=== PATIENT | male | born 1985 | race Caucasian/White ===

== ENCOUNTER 2017-09-06 01:11 | Inpatient (IN) | payer OTHER ==
[2017-09-06 02:16] LABS: Allen Test ACCEPTAB; Arterial Base Excess -9.1 mmol/L (-3.0-3); Arterial Blood Gas Oxygen Sat 93.3 mmHG (95.0-98.0); Arterial COHb 0.2 % (0.0-3.0); Arterial Fraction of Oxyhgb 92.8 % (93.0-99.0); Arterial MetHb 0.3 % (0.0-1.5); Arterial Total Hemglobin 9.7 g/dl (12.0-18.0); Arterial pCO2 44.1 mmhg (35-45); MODE VENT - AC; Site Left Radial
[2017-09-06 03:10] LABS: ADD MAN DIFF? NO; HAAIG REFLEX REFLEX FILED
[2017-09-06 03:29] LABS: LACTIC ACID 1.1 mmol/L (0.5-2.0)
[2017-09-06 03:30] LABS: ALANINE AMINOTRANSFERASE 398 IU/L (13-69); ALBUMIN 2.2 g/dl (3.3-4.9); ALKALINE PHOSPHATASE 199 IU/L (42-121); ANION GAP 15 (8-16); ASPARTATE AMINO TRANSFERASE 322 IU/L (15-46); BILIRUBIN,INDIRECT 0.6 mg/dl (0-1.1); BILIRUBIN,TOTAL 4.2 mg/dl (0.2-1.3); BLOOD UREA NITROGEN 48 mg/dl (7-20); CALCIUM 8.1 mg/dl (8.4-10.2); CARBON DIOXIDE 19 mmol/L (21-31); CHLORIDE 116 mmol/L (97-110); CREATININE 1.88 mg/dl (0.61-1.24); GLUCOSE 113 mg/dl (70-220); MAGNESIUM 1.8 mg/dl (1.7-2.5); POTASSIUM 4.9 mmol/L (3.5-5.1); SODIUM 145 mmol/L (135-144); TOTAL PROTEIN 6.6 g/dl (6.1-8.1)
[2017-09-06 03:36] LABS: WHITE BLOOD COUNT 27.1 10^3/ul (4.8-10.8)
[2017-09-06 03:36] LABS: ABNORMAL IP MESSAGE 1; BASOPHIL # 0.1 10^3/ul (0.0-0.1); BASOPHILS % 0.2 % (0.0-2.0); EOSINOPHILS % 0.1 % (0.0-7.0); HEMATOCRIT 25.8 % (42.0-52.0); HEMOGLOBIN 8.8 g/dl (14.0-18.0); LYMPHOCYTES % 3.6 % (15.0-51.0); MEAN CORPUSCULAR HEMOGLOBIN 27.9 pg (29.0-33.0); MEAN CORPUSCULAR HGB CONC 34.1 g/dl (32.0-37.0); MEAN CORPUSCULAR VOLUME 81.9 fl (82.0-101.0); MEAN PLATELET VOLUME 10.1 fl (7.4-10.4); MONOCYTE # 1.3 10^3/ul (0.3-0.9); MONOCYTES % 4.9 % (0.0-11.0); NEUTROPHIL # 23.5 10^3/ul (1.6-7.5); NEUTROPHILS % 86.8 % (39.0-77.0); NUCLEATED RED BLOOD CELLS% 0.1 /100WBC (0.0-0.0); PLATELET COUNT 110 10^3/UL (140-415); POSITIVE DIFF @See below; RED BLOOD COUNT 3.15 10^6/ul (4.70-6.10); RED CELL DISTRIBUTION WIDTH 19.9 % (11.5-14.5)
[2017-09-06] MEDS: SOD CHLORIDE 0.9% 1,000 ML IV ×4 (03:41→22:47)
[2017-09-06] MEDS: FENTAnyl (DRIP) 1000 mcg/100mL 100 ML IV ×2 (03:49→15:52)
[2017-09-06] MEDS: MIDAZOLAM (DRIP) 50 mg/50 mL 50 ML IV ×2 (03:57→15:47)
[2017-09-06] MEDS: ACETAMINOPHEN 650MG/20.3ML CUP PO (04:01)
[2017-09-06 04:08] LABS: HEPATITIS B SURFACE ANTIGEN NEGATIVE (NEGATIVE)
[2017-09-06] MEDS: ZYVOX 600 MG TAB PO (04:12)
[2017-09-06] MEDS: LEVOFLOXACIN 500MG/D5W (PMX) 100 ML IVPB (04:12)
[2017-09-06 04:26] LABS: HEPATITIS B CORE ANTIBODY NEGATIVE (NEGATIVE)
[2017-09-06 04:34] LABS: HEPATITIS B SURFACE ANTIBODY POSITIVE (NEGATIVE)
[2017-09-06 04:34] LABS: HEPATITIS C VIRAL ANTIBODY REACTIVE (NEGATIVE)
[2017-09-06] MEDS ORDERED: LEVOFLOXACIN 250MG/D5W (PMX) 50 ML IVPB (05:30)
[2017-09-06] MEDS: PANTOPRAZOLE 40 MG INJ IV (06:18)
[2017-09-06] MEDS: CLINDAMYCIN 600 MG/D5W (PMX) 50 ML IVPB ×2 (07:38→11:29)
[2017-09-06 08:28] LABS: AADO2 Arterial 120.3 mmHg (7.0-24.0); Allen Test ACCEPTAB; Arterial Base Excess -6.6 mmol/L (-3.0-3); Arterial Blood Gas Oxygen Sat 98.1 mmHG (95.0-98.0); Arterial COHb 0.5 % (0.0-3.0); Arterial Fraction of Oxyhgb 97.2 % (93.0-99.0); Arterial HCO3 18.2 mmol/L (22.0-26.0); Arterial MetHb 0.4 % (0.0-1.5); Arterial Total Hemglobin 8.2 g/dl (12.0-18.0); Arterial pCO2 33.1 mmhg (35-45); MODE VENT - AC; Site Right Radial
[2017-09-06] MEDS: LINEZOLID 600 MG/D5W (PMX) 300 ML IVPB ×2 (08:29→20:58)
[2017-09-06 10:57] LABS: HEPATITIS C VIRAL ANTIBODY REACTIVE (NEGATIVE)
[2017-09-06] MEDS: METHADONE (1 MG/ML 5 ML PO UD SYG) PO (11:29)
[2017-09-07] MEDS: ACETAMINOPHEN 650MG/20.3ML CUP PO ×2 (00:45→11:50)
[2017-09-07] MEDS: MIDAZOLAM (DRIP) 50 mg/50 mL 50 ML IV ×3 (00:51→21:36)
[2017-09-07] MEDS: FENTAnyl (DRIP) 1000 mcg/100mL 100 ML IV ×3 (02:18→21:47)
[2017-09-07 05:47] LABS: ADD MAN DIFF? NO
[2017-09-07 05:57] LABS: WHITE BLOOD COUNT 21.1 10^3/ul (4.8-10.8)
[2017-09-07 05:57] LABS: ABNORMAL IP MESSAGE 1; BASOPHIL # 0.1 10^3/ul (0.0-0.1); BASOPHILS % 0.2 % (0.0-2.0); EOSINOPHILS # 0.1 10^3/ul (0.0-0.5); EOSINOPHILS % 0.6 % (0.0-7.0); HEMATOCRIT 22.3 % (42.0-52.0); HEMOGLOBIN 7.4 g/dl (14.0-18.0); LYMPHOCYTES # 1.4 10^3/ul (0.8-2.9); LYMPHOCYTES % 6.6 % (15.0-51.0); MEAN CORPUSCULAR HEMOGLOBIN 27.2 pg (29.0-33.0); MEAN CORPUSCULAR HGB CONC 33.2 g/dl (32.0-37.0); MEAN PLATELET VOLUME 10.6 fl (7.4-10.4); MONOCYTE # 1.4 10^3/ul (0.3-0.9); MONOCYTES % 6.6 % (0.0-11.0); NEUTROPHIL # 17.7 10^3/ul (1.6-7.5); NEUTROPHILS % 83.6 % (39.0-77.0); NUCLEATED RED BLOOD CELLS% 0.2 /100WBC (0.0-0.0); PLATELET COUNT 89 10^3/UL (140-415); POSITIVE DIFF @See below; RED BLOOD COUNT 2.72 10^6/ul (4.70-6.10); RED CELL DISTRIBUTION WIDTH 19.9 % (11.5-14.5)
[2017-09-07] MEDS: PANTOPRAZOLE 40 MG INJ IV (06:05)
[2017-09-07] MEDS: SOD CHLORIDE 0.9% 1,000 ML IV (06:05)
[2017-09-07 06:23] LABS: OPIATES Negative (NEGATIVE)
[2017-09-07 06:24] LABS: AMPHETAMINE/METHAMPHETAMINE Negative (NEGATIVE); BARBITURATES Negative (NEGATIVE); BENZODIAZEPINES Positive (NEGATIVE); CANNABINOIDS Negative (NEGATIVE); COCAINE Negative (NEGATIVE)
[2017-09-07 06:38] LABS: ALANINE AMINOTRANSFERASE 217 IU/L (13-69); ALBUMIN/GLOBULIN RATIO 0.52; ALKALINE PHOSPHATASE 159 IU/L (42-121); ANION GAP 14 (8-16); ASPARTATE AMINO TRANSFERASE 78 IU/L (15-46); BILIRUBIN,INDIRECT 0.5 mg/dl (0-1.1); BLOOD UREA NITROGEN 56 mg/dl (7-20); CALCIUM 7.8 mg/dl (8.4-10.2); CARBON DIOXIDE 19 mmol/L (21-31); CHLORIDE 116 mmol/L (97-110); CREATININE 2.05 mg/dl (0.61-1.24); GLUCOSE 90 mg/dl (70-220); POTASSIUM 4.1 mmol/L (3.5-5.1); SODIUM 145 mmol/L (135-144); TOTAL PROTEIN 5.8 g/dl (6.1-8.1)
[2017-09-07 08:39] LABS: PHOSPHORUS 5.5 mg/dl (2.5-4.9)
[2017-09-07] MEDS: SOD CHLORIDE 0.9% 500 ML IV (08:46)
[2017-09-07] MEDS: NORepinephrine 8MG/250 ML (PMX 250 ML IV (08:48)
[2017-09-07] MEDS: METHADONE (1 MG/ML 5 ML PO UD SYG) PO (08:49)
[2017-09-07] MEDS: LINEZOLID 600 MG/D5W (PMX) 300 ML IVPB (08:51)
[2017-09-07 08:52] LABS: AADO2 Arterial 164.8 mmHg (7.0-24.0); Allen Test ACCEPTAB; Arterial Base Excess -5.8 mmol/L (-3.0-3); Arterial Blood Gas Oxygen Sat 94.9 mmHG (95.0-98.0); Arterial COHb 0.6 % (0.0-3.0); Arterial Fraction of Oxyhgb 94.1 % (93.0-99.0); Arterial HCO3 18.9 mmol/L (22.0-26.0); Arterial MetHb 0.2 % (0.0-1.5); Arterial Total Hemglobin 7.9 g/dl (12.0-18.0); Arterial pCO2 33.8 mmhg (35-45); MODE VENT - AC; Site Right Radial
[2017-09-07] MEDS: PIPER-TAZO 2.25 GM (PMX) 50 ML IVPB ×2 (12:28→17:40)
[2017-09-07 14:20] LABS: IMMEDIATE SPIN CROSSMATCH 1 1
[2017-09-08] MEDS: PIPER-TAZO 2.25 GM (PMX) 50 ML IVPB ×4 (00:36→17:32)
[2017-09-08] MEDS: LIDOCAINE 1% (MPF) 5 ML VIAL SC (01:06)
[2017-09-08] MEDS ORDERED: LEVOFLOXACIN 250MG/D5W (PMX) 50 ML IVPB (04:00)
[2017-09-08 05:38] LABS: ADD MAN DIFF? NO
[2017-09-08 05:44] LABS: WHITE BLOOD COUNT 18.7 10^3/ul (4.8-10.8)
[2017-09-08 05:44] LABS: ABNORMAL IP MESSAGE 1; BASOPHIL # 0.1 10^3/ul (0.0-0.1); BASOPHILS % 0.4 % (0.0-2.0); EOSINOPHILS # 0.2 10^3/ul (0.0-0.5); EOSINOPHILS % 0.9 % (0.0-7.0); HEMATOCRIT 24.1 % (42.0-52.0); LYMPHOCYTES # 1.3 10^3/ul (0.8-2.9); LYMPHOCYTES % 7.1 % (15.0-51.0); MEAN CORPUSCULAR HGB CONC 33.2 g/dl (32.0-37.0); MEAN CORPUSCULAR VOLUME 84.3 fl (82.0-101.0); MEAN PLATELET VOLUME 10.8 fl (7.4-10.4); MONOCYTE # 1.3 10^3/ul (0.3-0.9); NEUTROPHIL # 15.4 10^3/ul (1.6-7.5); NEUTROPHILS % 82.5 % (39.0-77.0); NUCLEATED RED BLOOD CELLS% 0.2 /100WBC (0.0-0.0); PLATELET COUNT 60 10^3/UL (140-415); POSITIVE DIFF @See below; RED BLOOD COUNT 2.86 10^6/ul (4.70-6.10); RED CELL DISTRIBUTION WIDTH 20.1 % (11.5-14.5)
[2017-09-08] MEDS: MIDAZOLAM (DRIP) 50 mg/50 mL 50 ML IV (05:50)
[2017-09-08] MEDS: PANTOPRAZOLE 40 MG INJ IV (05:51)
[2017-09-08 06:03] LABS: ANION GAP 13 (8-16); BLOOD UREA NITROGEN 58 mg/dl (7-20); CARBON DIOXIDE 21 mmol/L (21-31); CHLORIDE 118 mmol/L (97-110); CREATININE 1.88 mg/dl (0.61-1.24); GLUCOSE 102 mg/dl (70-220); POTASSIUM 4.2 mmol/L (3.5-5.1); SODIUM 148 mmol/L (135-144)
[2017-09-08 07:55] LABS: AADO2 Arterial 142.5 mmHg (7.0-24.0); Allen Test ACCEPTAB; Arterial Base Excess -5.7 mmol/L (-3.0-3); Arterial Blood Gas Oxygen Sat 97.5 mmHG (95.0-98.0); Arterial COHb 0.3 % (0.0-3.0); Arterial Fraction of Oxyhgb 96.9 % (93.0-99.0); Arterial HCO3 18.8 mmol/L (22.0-26.0); Arterial MetHb 0.3 % (0.0-1.5); Arterial Total Hemglobin 8.9 g/dl (12.0-18.0); Arterial pCO2 33.2 mmhg (35-45); MODE VENT - AC; Site Right Radial
[2017-09-08] MEDS: FENTAnyl (DRIP) 1000 mcg/100mL 100 ML IV (08:01)
[2017-09-08] MEDS: METHADONE (1 MG/ML 5 ML PO UD SYG) PO (09:07)
[2017-09-08 16:07] LABS: HIV 1&2 ANTIBODY NEGATIVE (NEGATIVE)
[2017-09-08] MEDS: ACETAMINOPHEN 650MG/20.3ML CUP PO (20:20)
[2017-09-09] MEDS: PIPER-TAZO 2.25 GM (PMX) 50 ML IVPB ×5 (00:35→23:32)
[2017-09-09] MEDS: LACTULOSE 30ML CUP GTB ×3 (00:35→12:00)
[2017-09-09 05:38] LABS: ADD MAN DIFF? NO
[2017-09-09] MEDS: PANTOPRAZOLE 40 MG INJ IV (05:43)
[2017-09-09] MEDS: ACETAMINOPHEN 650MG/20.3ML CUP PO (05:43)
[2017-09-09 05:44] LABS: ABNORMAL IP MESSAGE 1; BASOPHIL # 0.1 10^3/ul (0.0-0.1); BASOPHILS % 0.4 % (0.0-2.0); EOSINOPHILS # 0.2 10^3/ul (0.0-0.5); EOSINOPHILS % 1.2 % (0.0-7.0); HEMATOCRIT 24.7 % (42.0-52.0); HEMOGLOBIN 8.1 g/dl (14.0-18.0); MEAN CORPUSCULAR HEMOGLOBIN 27.3 pg (29.0-33.0); MEAN CORPUSCULAR HGB CONC 32.8 g/dl (32.0-37.0); MEAN CORPUSCULAR VOLUME 83.2 fl (82.0-101.0); MEAN PLATELET VOLUME 10.9 fl (7.4-10.4); MONOCYTE # 1.4 10^3/ul (0.3-0.9); NEUTROPHIL # 13.9 10^3/ul (1.6-7.5); NEUTROPHILS % 76.9 % (39.0-77.0); NUCLEATED RED BLOOD CELLS% 0.2 /100WBC (0.0-0.0); PLATELET COUNT 49 10^3/UL (140-415); POSITIVE DIFF @See below; RED BLOOD COUNT 2.97 10^6/ul (4.70-6.10); RED CELL DISTRIBUTION WIDTH 21.1 % (11.5-14.5)
[2017-09-09 05:59] LABS: AMMONIA 26 umol/l (9-30)
[2017-09-09 06:23] LABS: ALANINE AMINOTRANSFERASE 114 IU/L (13-69); ALBUMIN 2.2 g/dl (3.3-4.9); ALKALINE PHOSPHATASE 191 IU/L (42-121); ANION GAP 16 (8-16); ASPARTATE AMINO TRANSFERASE 42 IU/L (15-46); BILIRUBIN,INDIRECT 0.5 mg/dl (0-1.1); BILIRUBIN,TOTAL 1.8 mg/dl (0.2-1.3); BLOOD UREA NITROGEN 54 mg/dl (7-20); CALCIUM 8.2 mg/dl (8.4-10.2); CARBON DIOXIDE 20 mmol/L (21-31); CHLORIDE 119 mmol/L (97-110); CREATININE 1.77 mg/dl (0.61-1.24); GLUCOSE 113 mg/dl (70-220); POTASSIUM 4.3 mmol/L (3.5-5.1); SODIUM 151 mmol/L (135-144); TOTAL PROTEIN 6.6 g/dl (6.1-8.1)
[2017-09-09] MEDS: LORAZEPAM 2 MG INJ IV (07:00)
[2017-09-09] MEDS ORDERED: FAMOTIDINE 20 MG TAB GTB (09:00)
[2017-09-09] MEDS ORDERED: DEXTROSE 5% WATER 500 ML BAG IV (16:00)
[2017-09-09] MEDS: MIDAZOLAM (DRIP) 50 mg/50 mL 50 ML IV (17:42)
[2017-09-09] MEDS: FENTAnyl (DRIP) 1000 mcg/100mL 100 ML IV (17:53)
[2017-09-09] MEDS ORDERED: PROPOFOL 100 ML (19:43)
[2017-09-10] MEDS: ACETAMINOPHEN 650MG/20.3ML CUP PO ×2 (00:13→20:43)
[2017-09-10] MEDS: MIDAZOLAM (DRIP) 50 mg/50 mL 50 ML IV ×2 (03:48→08:11)
[2017-09-10] MEDS: FENTAnyl (DRIP) 1000 mcg/100mL 100 ML IV ×3 (03:50→22:42)
[2017-09-10 04:35] LABS: ADD MAN DIFF? NO
[2017-09-10 04:44] LABS: ABNORMAL IP MESSAGE 1; BASOPHILS % 0.2 % (0.0-2.0); EOSINOPHILS # 0.2 10^3/ul (0.0-0.5); HEMATOCRIT 22.2 % (42.0-52.0); HEMOGLOBIN 7.3 g/dl (14.0-18.0); LYMPHOCYTES # 1.7 10^3/ul (0.8-2.9); LYMPHOCYTES % 10.5 % (15.0-51.0); MEAN CORPUSCULAR HEMOGLOBIN 27.5 pg (29.0-33.0); MEAN CORPUSCULAR HGB CONC 32.9 g/dl (32.0-37.0); MEAN CORPUSCULAR VOLUME 83.8 fl (82.0-101.0); MEAN PLATELET VOLUME 11.4 fl (7.4-10.4); MONOCYTE # 1.3 10^3/ul (0.3-0.9); MONOCYTES % 7.9 % (0.0-11.0); NEUTROPHIL # 12.9 10^3/ul (1.6-7.5); NEUTROPHILS % 77.4 % (39.0-77.0); NUCLEATED RED BLOOD CELLS% 0.2 /100WBC (0.0-0.0); PLATELET COUNT 43 10^3/UL (140-415); POSITIVE DIFF @See below; RED BLOOD COUNT 2.65 10^6/ul (4.70-6.10); RED CELL DISTRIBUTION WIDTH 21.2 % (11.5-14.5)
[2017-09-10 04:44] LABS: WHITE BLOOD COUNT 16.7 10^3/ul (4.8-10.8)
[2017-09-10] MEDS: PANTOPRAZOLE 40 MG INJ IV (05:12)
[2017-09-10] MEDS: PIPER-TAZO 2.25 GM (PMX) 50 ML IVPB ×3 (05:16→17:50)
[2017-09-10 05:17] LABS: ALANINE AMINOTRANSFERASE 84 IU/L (13-69); ALBUMIN 2.1 g/dl (3.3-4.9); ALKALINE PHOSPHATASE 169 IU/L (42-121); ANION GAP 13 (8-16); ASPARTATE AMINO TRANSFERASE 30 IU/L (15-46); BILIRUBIN,INDIRECT 0.5 mg/dl (0-1.1); BILIRUBIN,TOTAL 1.2 mg/dl (0.2-1.3); BLOOD UREA NITROGEN 46 mg/dl (7-20); CALCIUM 7.9 mg/dl (8.4-10.2); CARBON DIOXIDE 22 mmol/L (21-31); CHLORIDE 121 mmol/L (97-110); CREATININE 1.35 mg/dl (0.61-1.24); GLUCOSE 105 mg/dl (70-220); POTASSIUM 4.1 mmol/L (3.5-5.1); SODIUM 152 mmol/L (135-144); TOTAL PROTEIN 6.3 g/dl (6.1-8.1)
[2017-09-10] MEDS: DEXMEDETOMIDINE HCL 200 MCG in SOD CHLORIDE 0.9% 48 ML IV ×4 (11:51→21:39)
[2017-09-11] MEDS: PIPER-TAZO 2.25 GM (PMX) 50 ML IVPB ×4 (00:51→18:16)
[2017-09-11] MEDS: DEXMEDETOMIDINE HCL 200 MCG in SOD CHLORIDE 0.9% 48 ML IV ×3 (00:51→11:14)
[2017-09-11 04:56] LABS: ADD MAN DIFF? NO
[2017-09-11 04:59] LABS: ABNORMAL IP MESSAGE 1; BASOPHIL # 0.1 10^3/ul (0.0-0.1); BASOPHILS % 0.3 % (0.0-2.0); EOSINOPHILS # 0.4 10^3/ul (0.0-0.5); EOSINOPHILS % 2.3 % (0.0-7.0); HEMATOCRIT 22.8 % (42.0-52.0); HEMOGLOBIN 7.5 g/dl (14.0-18.0); LYMPHOCYTES # 1.9 10^3/ul (0.8-2.9); LYMPHOCYTES % 12.1 % (15.0-51.0); MEAN CORPUSCULAR HGB CONC 32.9 g/dl (32.0-37.0); MEAN CORPUSCULAR VOLUME 85.1 fl (82.0-101.0); MEAN PLATELET VOLUME 11.6 fl (7.4-10.4); MONOCYTE # 1.1 10^3/ul (0.3-0.9); MONOCYTES % 7.1 % (0.0-11.0); NEUTROPHIL # 11.4 10^3/ul (1.6-7.5); NEUTROPHILS % 74.9 % (39.0-77.0); NUCLEATED RED BLOOD CELLS% 0.1 /100WBC (0.0-0.0); PLATELET COUNT 68 10^3/UL (140-415); POSITIVE DIFF @See below; RED BLOOD COUNT 2.68 10^6/ul (4.70-6.10); RED CELL DISTRIBUTION WIDTH 22.4 % (11.5-14.5)
[2017-09-11 04:59] LABS: WHITE BLOOD COUNT 15.3 10^3/ul (4.8-10.8)
[2017-09-11 05:19] LABS: ALANINE AMINOTRANSFERASE 69 IU/L (13-69); ALBUMIN 2.3 g/dl (3.3-4.9); ALBUMIN/GLOBULIN RATIO 0.52; ALKALINE PHOSPHATASE 162 IU/L (42-121); ANION GAP 13 (8-16); ASPARTATE AMINO TRANSFERASE 26 IU/L (15-46); BILIRUBIN,INDIRECT 0.5 mg/dl (0-1.1); BILIRUBIN,TOTAL 0.9 mg/dl (0.2-1.3); BLOOD UREA NITROGEN 43 mg/dl (7-20); CALCIUM 8.2 mg/dl (8.4-10.2); CARBON DIOXIDE 22 mmol/L (21-31); CHLORIDE 123 mmol/L (97-110); GLUCOSE 115 mg/dl (70-220); POTASSIUM 4.4 mmol/L (3.5-5.1); SODIUM 154 mmol/L (135-144); TOTAL PROTEIN 6.7 g/dl (6.1-8.1)
[2017-09-11] MEDS: PANTOPRAZOLE 40 MG INJ IV (06:24)
[2017-09-11 08:30] LABS: AADO2 Arterial 97.3 mmHg (7.0-24.0); Allen Test ACCEPTAB; Arterial Base Excess -3.4 mmol/L (-3.0-3); Arterial Blood Gas Oxygen Sat 95.3 mmHG (95.0-98.0); Arterial COHb 0 % (0.0-3.0); Arterial HCO3 20.4 mmol/L (22.0-26.0); Arterial MetHb 0.3 % (0.0-1.5); Arterial Total Hemglobin 8.7 g/dl (12.0-18.0); Arterial pCO2 31.3 mmhg (35-45); MODE VENT - AC; Site Right Radial
[2017-09-11] MEDS: ALBUTEROL/IPRATROPIUM (NEB) 3 ML AMP HHN ×3 (10:48→19:14)
[2017-09-11] MEDS: FENTAnyl (DRIP) 1000 mcg/100mL 100 ML IV ×2 (11:18→20:42)
[2017-09-11] MEDS: MIDAZOLAM (DRIP) 50 mg/50 mL 50 ML IV ×2 (11:19→20:09)
[2017-09-11] MEDS ORDERED: PROPOFOL 100 ML (11:23)
[2017-09-11] MEDS ORDERED: LORAZEPAM 2 MG INJ (11:23)
[2017-09-11] MEDS: LORAZEPAM 2 MG INJ IV (11:37)
[2017-09-11] MEDS: PROPOFOL 100 ML IV ×3 (11:38→20:36)
[2017-09-12] MEDS: PIPER-TAZO 2.25 GM (PMX) 50 ML IVPB ×5 (00:42→23:59)
[2017-09-12] MEDS: ALBUTEROL/IPRATROPIUM (NEB) 3 ML AMP HHN ×4 (01:06→20:08)
[2017-09-12] MEDS: FUROSEMIDE 40 MG INJ IV (01:18)
[2017-09-12] MEDS: PROPOFOL 100 ML IV ×2 (01:31→19:38)
[2017-09-12] MEDS: FENTAnyl (DRIP) 1000 mcg/100mL 100 ML IV ×2 (05:01→21:29)
[2017-09-12] MEDS: PANTOPRAZOLE 40 MG INJ IV (05:54)
[2017-09-12 06:03] LABS: ADD MAN DIFF? NO
[2017-09-12 06:12] LABS: ABNORMAL IP MESSAGE 1; BASOPHILS % 0.2 % (0.0-2.0); EOSINOPHILS # 0.4 10^3/ul (0.0-0.5); EOSINOPHILS % 2.6 % (0.0-7.0); HEMATOCRIT 21.9 % (42.0-52.0); HEMOGLOBIN 7.2 g/dl (14.0-18.0); LYMPHOCYTES # 1.9 10^3/ul (0.8-2.9); LYMPHOCYTES % 11.6 % (15.0-51.0); MEAN CORPUSCULAR HEMOGLOBIN 27.9 pg (29.0-33.0); MEAN CORPUSCULAR HGB CONC 32.9 g/dl (32.0-37.0); MEAN CORPUSCULAR VOLUME 84.9 fl (82.0-101.0); MEAN PLATELET VOLUME 12.4 fl (7.4-10.4); MONOCYTE # 1.1 10^3/ul (0.3-0.9); MONOCYTES % 6.8 % (0.0-11.0); NEUTROPHIL # 12.4 10^3/ul (1.6-7.5); NEUTROPHILS % 75.6 % (39.0-77.0); NUCLEATED RED BLOOD CELLS% 0.1 /100WBC (0.0-0.0); PLATELET COUNT 103 10^3/UL (140-415); POSITIVE DIFF @See below; RED BLOOD COUNT 2.58 10^6/ul (4.70-6.10); RED CELL DISTRIBUTION WIDTH 22.5 % (11.5-14.5)
[2017-09-12 06:12] LABS: WHITE BLOOD COUNT 16.4 10^3/ul (4.8-10.8)
[2017-09-12 06:49] LABS: ALANINE AMINOTRANSFERASE 58 IU/L (13-69); ALBUMIN 2.1 g/dl (3.3-4.9); ALBUMIN/GLOBULIN RATIO 0.52; ALKALINE PHOSPHATASE 169 IU/L (42-121); ANION GAP 15 (8-16); ASPARTATE AMINO TRANSFERASE 33 IU/L (15-46); BILIRUBIN,INDIRECT 0.4 mg/dl (0-1.1); BILIRUBIN,TOTAL 0.9 mg/dl (0.2-1.3); BLOOD UREA NITROGEN 42 mg/dl (7-20); CALCIUM 7.8 mg/dl (8.4-10.2); CARBON DIOXIDE 22 mmol/L (21-31); CHLORIDE 119 mmol/L (97-110); CREATININE 1.26 mg/dl (0.61-1.24); GLUCOSE 97 mg/dl (70-220); POTASSIUM 3.9 mmol/L (3.5-5.1); SODIUM 152 mmol/L (135-144); TOTAL PROTEIN 6.1 g/dl (6.1-8.1)
[2017-09-12 08:27] LABS: AADO2 Arterial 95.3 mmHg (7.0-24.0); Allen Test ACCEPTAB; Arterial Base Excess -2.9 mmol/L (-3.0-3); Arterial Blood Gas Oxygen Sat 95.5 mmHG (95.0-98.0); Arterial COHb 0.3 % (0.0-3.0); Arterial Fraction of Oxyhgb 94.9 % (93.0-99.0); Arterial HCO3 20.7 mmol/L (22.0-26.0); Arterial MetHb 0.3 % (0.0-1.5); Arterial Total Hemglobin 9.1 g/dl (12.0-18.0); Arterial pCO2 31.6 mmhg (35-45); MODE VENT - AC; Site Right Radial
[2017-09-12 08:33] LABS: MAGNESIUM 1.9 mg/dl (1.7-2.5)
[2017-09-12 08:33] LABS: PHOSPHORUS 4.1 mg/dl (2.5-4.9)
[2017-09-12 08:43] LABS: B-TYPE NATRIURETIC PEPTIDE 3580 PG/ML (0-125)
[2017-09-12] MEDS: DEXTROSE 5%-0.225% NACL 1,000 ML IV (10:00)
[2017-09-12] MEDS: DEXMEDETOMIDINE HCL 200 MCG in SOD CHLORIDE 0.9% 48 ML IV ×2 (10:00→16:00)
[2017-09-12 14:28] LABS: IMMEDIATE SPIN CROSSMATCH 1 1
[2017-09-13] MEDS: ALBUTEROL/IPRATROPIUM (NEB) 3 ML AMP HHN ×4 (01:19→19:49)
[2017-09-13] MEDS: PROPOFOL 100 ML IV ×2 (01:47→20:25)
[2017-09-13 04:47] LABS: ADD MAN DIFF? NO
[2017-09-13 04:53] LABS: ABNORMAL IP MESSAGE 1; BASOPHIL # 0.1 10^3/ul (0.0-0.1); BASOPHILS % 0.3 % (0.0-2.0); EOSINOPHILS # 0.4 10^3/ul (0.0-0.5); HEMATOCRIT 26.5 % (42.0-52.0); HEMOGLOBIN 8.6 g/dl (14.0-18.0); LYMPHOCYTES # 1.6 10^3/ul (0.8-2.9); LYMPHOCYTES % 8.5 % (15.0-51.0); MEAN CORPUSCULAR HEMOGLOBIN 27.8 pg (29.0-33.0); MEAN CORPUSCULAR HGB CONC 32.5 g/dl (32.0-37.0); MEAN CORPUSCULAR VOLUME 85.8 fl (82.0-101.0); MEAN PLATELET VOLUME 11.8 fl (7.4-10.4); MONOCYTES % 5.1 % (0.0-11.0); NEUTROPHIL # 15.4 10^3/ul (1.6-7.5); NEUTROPHILS % 80.7 % (39.0-77.0); NUCLEATED RED BLOOD CELLS # 0.1 10^3/ul (0.0-0.0); NUCLEATED RED BLOOD CELLS% 0.3 /100WBC (0.0-0.0); PLATELET COUNT 114 10^3/UL (140-415); POSITIVE DIFF @See below; RED BLOOD COUNT 3.09 10^6/ul (4.70-6.10); RED CELL DISTRIBUTION WIDTH 22.3 % (11.5-14.5)
[2017-09-13 04:53] LABS: WHITE BLOOD COUNT 19.1 10^3/ul (4.8-10.8)
[2017-09-13 05:23] LABS: ALANINE AMINOTRANSFERASE 55 IU/L (13-69); ALBUMIN 2.3 g/dl (3.3-4.9); ALBUMIN/GLOBULIN RATIO 0.54; ALKALINE PHOSPHATASE 165 IU/L (42-121); ANION GAP 13 (8-16); ASPARTATE AMINO TRANSFERASE 35 IU/L (15-46); BILIRUBIN,INDIRECT 0.4 mg/dl (0-1.1); BILIRUBIN,TOTAL 0.7 mg/dl (0.2-1.3); BLOOD UREA NITROGEN 31 mg/dl (7-20); CALCIUM 7.6 mg/dl (8.4-10.2); CARBON DIOXIDE 21 mmol/L (21-31); CHLORIDE 113 mmol/L (97-110); CREATININE 0.95 mg/dl (0.61-1.24); GLUCOSE 243 mg/dl (70-220); POTASSIUM 3.5 mmol/L (3.5-5.1); SODIUM 143 mmol/L (135-144); TOTAL PROTEIN 6.5 g/dl (6.1-8.1)
[2017-09-13] MEDS: DEXTROSE 5%-0.225% NACL 1,000 ML IV (05:38)
[2017-09-13] MEDS: PANTOPRAZOLE 40 MG INJ IV (05:38)
[2017-09-13] MEDS: PIPER-TAZO 2.25 GM (PMX) 50 ML IVPB (05:38)
[2017-09-13] MEDS: PIPER-TAZO 3.375 GM IV (PMX) 100 ML IVPB ×3 (11:21→23:54)
[2017-09-13 17:22] LABS: INR 1.26; PT RATIO 1.3
[2017-09-14] MEDS: PROPOFOL 100 ML IV ×3 (01:08→20:27)
[2017-09-14] MEDS: ALBUTEROL/IPRATROPIUM (NEB) 3 ML AMP HHN ×4 (01:36→20:05)
[2017-09-14 05:04] LABS: ADD MAN DIFF? NO
[2017-09-14 05:08] LABS: ABNORMAL IP MESSAGE 1; BASOPHIL # 0.1 10^3/ul (0.0-0.1); BASOPHILS % 0.3 % (0.0-2.0); EOSINOPHILS # 0.6 10^3/ul (0.0-0.5); HEMATOCRIT 25.4 % (42.0-52.0); HEMOGLOBIN 8.3 g/dl (14.0-18.0); LYMPHOCYTES # 1.8 10^3/ul (0.8-2.9); LYMPHOCYTES % 9.2 % (15.0-51.0); MEAN CORPUSCULAR HEMOGLOBIN 28.2 pg (29.0-33.0); MEAN CORPUSCULAR HGB CONC 32.7 g/dl (32.0-37.0); MEAN CORPUSCULAR VOLUME 86.4 fl (82.0-101.0); MEAN PLATELET VOLUME 11.9 fl (7.4-10.4); MONOCYTE # 0.9 10^3/ul (0.3-0.9); MONOCYTES % 4.9 % (0.0-11.0); NEUTROPHIL # 15.3 10^3/ul (1.6-7.5); NEUTROPHILS % 80.7 % (39.0-77.0); NUCLEATED RED BLOOD CELLS% 0.1 /100WBC (0.0-0.0); PLATELET COUNT 133 10^3/UL (140-415); POSITIVE DIFF @See below; RED BLOOD COUNT 2.94 10^6/ul (4.70-6.10); RED CELL DISTRIBUTION WIDTH 22.8 % (11.5-14.5)
[2017-09-14 05:35] LABS: ALANINE AMINOTRANSFERASE 52 IU/L (13-69); ALBUMIN 2.5 g/dl (3.3-4.9); ALBUMIN/GLOBULIN RATIO 0.56; ALKALINE PHOSPHATASE 155 IU/L (42-121); ANION GAP 13 (8-16); ASPARTATE AMINO TRANSFERASE 39 IU/L (15-46); BILIRUBIN,INDIRECT 0.4 mg/dl (0-1.1); BILIRUBIN,TOTAL 0.6 mg/dl (0.2-1.3); BLOOD UREA NITROGEN 23 mg/dl (7-20); CALCIUM 7.8 mg/dl (8.4-10.2); CARBON DIOXIDE 21 mmol/L (21-31); CHLORIDE 114 mmol/L (97-110); CREATININE 0.79 mg/dl (0.61-1.24); GLUCOSE 121 mg/dl (70-220); POTASSIUM 3.5 mmol/L (3.5-5.1); SODIUM 144 mmol/L (135-144); TOTAL PROTEIN 6.9 g/dl (6.1-8.1)
[2017-09-14] MEDS: PANTOPRAZOLE 40 MG INJ IV (05:39)
[2017-09-14] MEDS: PIPER-TAZO 3.375 GM IV (PMX) 100 ML IVPB ×3 (05:39→17:01)
[2017-09-14 06:33] LABS: ADD UMIC YES; UR ASCORBIC ACID 40 mg/dL (NEGATIVE); UR BACTERIA FEW /HPF (NONE SEEN); UR BILIRUBIN (Dip) NEGATIVE (NEGATIVE); UR BLOOD (Dip) 1+ mg/dL (NEGATIVE); UR CLARITY CLOUDY (CLEAR); UR COLOR AMBER (YELLOW); UR GLUCOSE (Dip) NEGATIVE (NEGATIVE); UR KETONES (Dip) NEGATIVE (NEGATIVE); UR LEUKOCYTE ESTERASE (Dip) NEGATIVE Leu/ul (NEGATIVE); UR MUCUS FEW /HPF (NONE SEEN); UR NITRITE (Dip) NEGATIVE (NEGATIVE); UR RBC 0 /HPF (0-5); UR SPECIFIC GRAVITY (Dip) 1.026 (1.003-1.030); UR TOTAL PROTEIN (Dip) 2+ mg/dl (NEGATIVE); UR UROBILINOGEN (Dip) NEGATIVE (NEGATIVE); UR WBC 6 /HPF (0-5)
[2017-09-15] MEDS: PIPER-TAZO 3.375 GM IV (PMX) 100 ML IVPB ×3 (00:06→13:19)
[2017-09-15] MEDS: ACETAMINOPHEN 650MG/20.3ML CUP PO (00:43)
[2017-09-15] MEDS: PROPOFOL 100 ML IV ×2 (01:34→06:45)
[2017-09-15] MEDS: ALBUTEROL/IPRATROPIUM (NEB) 3 ML AMP HHN ×6 (01:38→20:28)
[2017-09-15 05:06] LABS: ADD MAN DIFF? NO
[2017-09-15 05:21] LABS: ABNORMAL IP MESSAGE 1; BASOPHILS % 0.2 % (0.0-2.0); EOSINOPHILS # 0.5 10^3/ul (0.0-0.5); EOSINOPHILS % 2.4 % (0.0-7.0); HEMATOCRIT 25.2 % (42.0-52.0); HEMOGLOBIN 8.5 g/dl (14.0-18.0); LYMPHOCYTES # 1.7 10^3/ul (0.8-2.9); LYMPHOCYTES % 8.2 % (15.0-51.0); MEAN CORPUSCULAR HEMOGLOBIN 29.4 pg (29.0-33.0); MEAN CORPUSCULAR HGB CONC 33.7 g/dl (32.0-37.0); MEAN CORPUSCULAR VOLUME 87.2 fl (82.0-101.0); MEAN PLATELET VOLUME 11.8 fl (7.4-10.4); MONOCYTE # 1.1 10^3/ul (0.3-0.9); MONOCYTES % 5.2 % (0.0-11.0); NEUTROPHIL # 16.8 10^3/ul (1.6-7.5); NEUTROPHILS % 82.3 % (39.0-77.0); PLATELET COUNT 174 10^3/UL (140-415); POSITIVE DIFF @See below; RED BLOOD COUNT 2.89 10^6/ul (4.70-6.10); RED CELL DISTRIBUTION WIDTH 22.5 % (11.5-14.5)
[2017-09-15 05:21] LABS: WHITE BLOOD COUNT 20.4 10^3/ul (4.8-10.8)
[2017-09-15] MEDS: PANTOPRAZOLE 40 MG INJ IV (05:44)
[2017-09-15 05:49] LABS: ALANINE AMINOTRANSFERASE 45 IU/L (13-69); ALBUMIN 2.5 g/dl (3.3-4.9); ALBUMIN/GLOBULIN RATIO 0.59; ALKALINE PHOSPHATASE 156 IU/L (42-121); ANION GAP 14 (8-16); ASPARTATE AMINO TRANSFERASE 34 IU/L (15-46); BILIRUBIN,INDIRECT 0.3 mg/dl (0-1.1); BILIRUBIN,TOTAL 0.4 mg/dl (0.2-1.3); BLOOD UREA NITROGEN 18 mg/dl (7-20); CALCIUM 7.8 mg/dl (8.4-10.2); CARBON DIOXIDE 22 mmol/L (21-31); CHLORIDE 115 mmol/L (97-110); CREATININE 0.77 mg/dl (0.61-1.24); GLUCOSE 105 mg/dl (70-220); POTASSIUM 3.3 mmol/L (3.5-5.1); SODIUM 148 mmol/L (135-144); TOTAL PROTEIN 6.7 g/dl (6.1-8.1)
[2017-09-15] MEDS ORDERED: POTASSIUM CHLORIDE 0 ML (06:41)
[2017-09-15] MEDS: POTASSIUM CHLORIDE 100 ML IVPB (07:08)
[2017-09-15 15:04] LABS: AADO2 Arterial 81.7 mmHg (7.0-24.0); Allen Test ACCEPTAB; Arterial Base Excess -1.6 mmol/L (-3.0-3); Arterial Blood Gas Oxygen Sat 97.3 mmHG (95.0-98.0); Arterial COHb 0.3 % (0.0-3.0); Arterial Fraction of Oxyhgb 96.7 % (93.0-99.0); Arterial HCO3 21.6 mmol/L (22.0-26.0); Arterial MetHb 0.3 % (0.0-1.5); Arterial Total Hemglobin 10.3 g/dl (12.0-18.0); Blood Gas PS 10; MODE VENT - CPAP; Site Right Radial
[2017-09-15] MEDS: CEFTRIAXONE 2 GM/50 ML (PMX) 50 ML IVPB (17:09)
[2017-09-16] MEDS: ALBUTEROL/IPRATROPIUM (NEB) 3 ML AMP HHN ×6 (00:25→21:16)
[2017-09-16] MEDS: PANTOPRAZOLE 40 MG INJ IV (05:34)
[2017-09-16 05:36] LABS: ADD MAN DIFF? NO
[2017-09-16 05:46] LABS: ABNORMAL IP MESSAGE 1; BASOPHIL # 0.1 10^3/ul (0.0-0.1); BASOPHILS % 0.3 % (0.0-2.0); EOSINOPHILS # 0.2 10^3/ul (0.0-0.5); EOSINOPHILS % 0.8 % (0.0-7.0); HEMATOCRIT 26.1 % (42.0-52.0); HEMOGLOBIN 8.5 g/dl (14.0-18.0); LYMPHOCYTES # 1.5 10^3/ul (0.8-2.9); LYMPHOCYTES % 6.8 % (15.0-51.0); MEAN CORPUSCULAR HEMOGLOBIN 28.3 pg (29.0-33.0); MEAN CORPUSCULAR HGB CONC 32.6 g/dl (32.0-37.0); MEAN PLATELET VOLUME 10.7 fl (7.4-10.4); MONOCYTE # 1.1 10^3/ul (0.3-0.9); MONOCYTES % 4.9 % (0.0-11.0); NEUTROPHIL # 18.8 10^3/ul (1.6-7.5); NEUTROPHILS % 85.9 % (39.0-77.0); PLATELET COUNT 170 10^3/UL (140-415); POSITIVE DIFF @See below; RED CELL DISTRIBUTION WIDTH 22.6 % (11.5-14.5)
[2017-09-16 05:46] LABS: WHITE BLOOD COUNT 21.9 10^3/ul (4.8-10.8)
[2017-09-16 06:07] LABS: ALANINE AMINOTRANSFERASE 52 IU/L (13-69); ALBUMIN 2.6 g/dl (3.3-4.9); ALBUMIN/GLOBULIN RATIO 0.63; ALKALINE PHOSPHATASE 145 IU/L (42-121); ANION GAP 16 (8-16); ASPARTATE AMINO TRANSFERASE 41 IU/L (15-46); BILIRUBIN,INDIRECT 0.5 mg/dl (0-1.1); BILIRUBIN,TOTAL 0.6 mg/dl (0.2-1.3); BLOOD UREA NITROGEN 16 mg/dl (7-20); CARBON DIOXIDE 22 mmol/L (21-31); CHLORIDE 113 mmol/L (97-110); CREATININE 0.72 mg/dl (0.61-1.24); GLUCOSE 100 mg/dl (70-220); POTASSIUM 3.3 mmol/L (3.5-5.1); SODIUM 148 mmol/L (135-144); TOTAL PROTEIN 6.7 g/dl (6.1-8.1)
[2017-09-16] MEDS: METOPROLOL 25 MG TAB PO ×2 (12:44→21:06)
[2017-09-16] MEDS: FUROSEMIDE 40 MG INJ IV (12:44)
[2017-09-16] MEDS: ALBUMIN HUMAN 25% 100 ML IV ×2 (12:45→18:28)
[2017-09-16] MEDS: POTASSIUM CHLORIDE (SR) 20 MEQ TAB PO (12:45)
[2017-09-16] MEDS: CASPOFUNGIN 50 MG in SOD CHLORIDE 0.9% 250 ML IVPB (13:58)
[2017-09-16] MEDS: CEFTRIAXONE 2 GM/50 ML (PMX) 50 ML IVPB (16:19)
[2017-09-16] MEDS: LORAZEPAM 2 MG INJ IV (18:31)
[2017-09-16] MEDS: DULOXETINE 30 MG CAP DR PO (21:07)
[2017-09-16] MEDS: ACETAMINOPHEN 650MG/20.3ML CUP PO (21:11)
[2017-09-17] MEDS: ALBUTEROL/IPRATROPIUM (NEB) 3 ML AMP HHN ×6 (01:29→21:00)
[2017-09-17] MEDS: ALBUMIN HUMAN 25% 100 ML IV (03:30)
[2017-09-17] MEDS: hydrALAzine 20 MG INJ IV ×2 (04:08→15:52)
[2017-09-17] MEDS: ZOLPIDEM 5 MG TAB PO (04:08)
[2017-09-17] MEDS: PANTOPRAZOLE 40 MG INJ IV (05:32)
[2017-09-17] MEDS ORDERED: ETOMIDATE 20 MG INJ (07:00)
[2017-09-17] MEDS ORDERED: ROCURONIUM 50 MG INJ (07:00)
[2017-09-17] MEDS: LORAZEPAM 2 MG INJ IV ×4 (07:11→21:12)
[2017-09-17 08:41] LABS: ADD MAN DIFF? NO
[2017-09-17 08:44] LABS: ABNORMAL IP MESSAGE 1; BASOPHIL # 0.1 10^3/ul (0.0-0.1); BASOPHILS % 0.2 % (0.0-2.0); EOSINOPHILS # 0.2 10^3/ul (0.0-0.5); EOSINOPHILS % 0.9 % (0.0-7.0); HEMATOCRIT 26.6 % (42.0-52.0); HEMOGLOBIN 8.7 g/dl (14.0-18.0); LYMPHOCYTES # 1.6 10^3/ul (0.8-2.9); LYMPHOCYTES % 6.3 % (15.0-51.0); MEAN CORPUSCULAR HEMOGLOBIN 27.9 pg (29.0-33.0); MEAN CORPUSCULAR HGB CONC 32.7 g/dl (32.0-37.0); MEAN CORPUSCULAR VOLUME 85.3 fl (82.0-101.0); MEAN PLATELET VOLUME 11.1 fl (7.4-10.4); MONOCYTE # 1.3 10^3/ul (0.3-0.9); MONOCYTES % 5.3 % (0.0-11.0); NEUTROPHIL # 21.2 10^3/ul (1.6-7.5); NEUTROPHILS % 85.8 % (39.0-77.0); NUCLEATED RED BLOOD CELLS% 0.1 /100WBC (0.0-0.0); PLATELET COUNT 144 10^3/UL (140-415); POSITIVE DIFF @See below; RED BLOOD COUNT 3.12 10^6/ul (4.70-6.10); RED CELL DISTRIBUTION WIDTH 22.6 % (11.5-14.5)
[2017-09-17 08:44] LABS: WHITE BLOOD COUNT 24.7 10^3/ul (4.8-10.8)
[2017-09-17] MEDS: DULOXETINE 30 MG CAP DR PO ×2 (09:04→21:00)
[2017-09-17] MEDS: METOPROLOL 25 MG TAB PO ×2 (09:04→21:00)
[2017-09-17 09:12] LABS: ANION GAP 17 (8-16); BLOOD UREA NITROGEN 13 mg/dl (7-20); CALCIUM 8.1 mg/dl (8.4-10.2); CARBON DIOXIDE 22 mmol/L (21-31); CHLORIDE 108 mmol/L (97-110); CREATININE 0.67 mg/dl (0.61-1.24); GLUCOSE 102 mg/dl (70-220); MAGNESIUM 1.6 mg/dl (1.7-2.5); SODIUM 144 mmol/L (135-144)
[2017-09-17 09:18] LABS: POTASSIUM 2.9 mmol/L (3.5-5.1)
[2017-09-17] MEDS ORDERED: POTASSIUM CHLORIDE 20 MEQ POWDER FOR ORAL SOLN PO (09:28)
[2017-09-17] MEDS: POTASSIUM CHLORIDE 20 MEQ POWDER FOR ORAL SOLN PO ×2 (10:00→13:44)
[2017-09-17] MEDS: MAGNESIUM OXIDE 400 MG TAB PO ×2 (11:37→21:00)
[2017-09-17] MEDS: CASPOFUNGIN 50 MG in SOD CHLORIDE 0.9% 250 ML IVPB (11:39)
[2017-09-17] MEDS: CHLORDIAZEPOXIDE 25 MG CAP PO ×2 (13:44→21:00)
[2017-09-17] MEDS: CEFTRIAXONE 2 GM/50 ML (PMX) 50 ML IVPB (15:41)
[2017-09-17] MEDS: HALOPERIDOL 5 MG INJ IM (20:19)
[2017-09-17 20:35] LABS: AADO2 Arterial 168.3 mmHg (7.0-24.0); Arterial Base Excess -1.8 mmol/L (-3.0-3); Arterial Blood Gas Oxygen Sat 92.7 mmHG (95.0-98.0); Arterial COHb 0.1 % (0.0-3.0); Arterial Fraction of Oxyhgb 92.4 % (93.0-99.0); Arterial HCO3 19.7 mmol/L (22.0-26.0); Arterial MetHb 0.2 % (0.0-1.5); Arterial Total Hemglobin 10.9 g/dl (12.0-18.0); Arterial pCO2 24.2 mmhg (35-45); MODE NASAL CANNULA; Site Right Brachial
[2017-09-17] MEDS ORDERED: DILTIAZEM 25 MG INJ (20:41)
[2017-09-17] MEDS ORDERED: LEVALBUTEROL (NEB) 0.63 MG/3 ML AMP (20:57)
[2017-09-17] MEDS: LEVALBUTEROL (NEB) 0.63 MG/3 ML AMP HHN (21:10)
[2017-09-17] MEDS: DILTIAZEM 25 MG INJ IV (21:12)
[2017-09-17] MEDS ORDERED: AMIODARONE 150MG/D5W BOLUS 100 ML (21:25)
[2017-09-17] MEDS: LORAZEPAM 2 MG INJ IM (21:30)
[2017-09-17] MEDS ORDERED: PROPOFOL 100 ML (21:49)
[2017-09-17 23:21] LABS: AADO2 Arterial 541.9 mmHg (7.0-24.0); Allen Test ACCEPTAB; Arterial Base Excess -10.1 mmol/L (-3.0-3); Arterial Blood Gas Oxygen Sat 95.9 mmHG (95.0-98.0); Arterial COHb 0.3 % (0.0-3.0); Arterial Fraction of Oxyhgb 95.2 % (93.0-99.0); Arterial HCO3 19.6 mmol/L (22.0-26.0); Arterial MetHb 0.4 % (0.0-1.5); Arterial Total Hemglobin 11.2 g/dl (12.0-18.0); Arterial pCO2 62.7 mmhg (35-45); MODE VENT - AC; Site Right Radial
[2017-09-17] MEDS: PROPOFOL 100 ML IV (23:52)
[2017-09-17] MEDS: AMIODARONE 900 MG in DEXTROSE 5% 482 ML IV (23:54)
[2017-09-17] MEDS: FENTAnyl (DRIP) 1000 mcg/100mL 100 ML IV (23:58)
[2017-09-18] MEDS ORDERED: ROCURONIUM BROMIDE 10 MG/ML VIAL IV
[2017-09-18] MEDS: ETOMIDATE 20 MG INJ IV (00:02)
[2017-09-18] MEDS: ROCURONIUM 50 MG INJ IV (00:02)
[2017-09-18] MEDS: LORAZEPAM 2 MG INJ IV (00:50)
[2017-09-18] MEDS: SOD CHLORIDE 0.9% 1,000 ML IV (00:51)
[2017-09-18] MEDS: ALBUTEROL/IPRATROPIUM (NEB) 3 ML AMP HHN ×4 (01:00→13:00)
[2017-09-18 01:06] LABS: AADO2 Arterial 528.7 mmHg (7.0-24.0); Allen Test ACCEPTAB; Arterial Base Excess -7.3 mmol/L (-3.0-3); Arterial Blood Gas Oxygen Sat 98.8 mmHG (95.0-98.0); Arterial COHb 0.1 % (0.0-3.0); Arterial Fraction of Oxyhgb 98.4 % (93.0-99.0); Arterial MetHb 0.3 % (0.0-1.5); Arterial Total Hemglobin 11.3 g/dl (12.0-18.0); Arterial pCO2 35.9 mmhg (35-45); MODE VENT - AC; Site Right Radial
[2017-09-18] MEDS: LEVALBUTEROL (NEB) 0.63 MG/3 ML AMP HHN ×6 (01:31→21:37)
[2017-09-18] MEDS: ALBUMIN HUMAN 25% 100 ML IV (02:48)
[2017-09-18 05:15] LABS: WHITE BLOOD COUNT 38.2 10^3/ul (4.8-10.8)
[2017-09-18 05:15] LABS: ABNORMAL IP MESSAGE 1; HEMATOCRIT 28.9 % (42.0-52.0); HEMOGLOBIN 9.2 g/dl (14.0-18.0); MEAN CORPUSCULAR HGB CONC 31.8 g/dl (32.0-37.0); MEAN CORPUSCULAR VOLUME 88.1 fl (82.0-101.0); MEAN PLATELET VOLUME 11.2 fl (7.4-10.4); NUCLEATED RED BLOOD CELLS% 0.1 /100WBC (0.0-0.0); PLATELET COUNT 98 10^3/UL (140-415); POSITIVE DIFF @See below; RED BLOOD COUNT 3.28 10^6/ul (4.70-6.10)
[2017-09-18 05:26] LABS: ADD MAN DIFF? YES
[2017-09-18] MEDS: PROPOFOL 100 ML IV ×5 (05:27→21:29)
[2017-09-18 05:41] LABS: LACTIC ACID 2.7 mmol/L (0.5-2.0)
[2017-09-18 05:51] LABS: ANION GAP 27 (8-16); BLOOD UREA NITROGEN 15 mg/dl (7-20); CALCIUM 7.5 mg/dl (8.4-10.2); CARBON DIOXIDE 19 mmol/L (21-31); CHLORIDE 107 mmol/L (97-110); CREATININE 0.95 mg/dl (0.61-1.24); GLUCOSE 79 mg/dl (70-220); MAGNESIUM 1.5 mg/dl (1.7-2.5); POTASSIUM 3.7 mmol/L (3.5-5.1); SODIUM 149 mmol/L (135-144)
[2017-09-18] MEDS: PANTOPRAZOLE 40 MG INJ IV (06:46)
[2017-09-18 07:34] LABS: ANISOCYTOSIS 2+ (0-0); BAND NEUTROPHILS #M 1.9 10^3/ul (0.0-0.6); BAND NEUTROPHILS % (M) 5 % (0-4); GIANT THROMBO% (M) 2 % (0-0); HYPOCHROMASIA 2+ (0-0); LYMPHOCYTES #M 0.7 10^3/ul (0.8-2.9); LYMPHOCYTES % (M) 2 % (15-51); METAMYELOCYTES #M 0.3 10^3/ul (0.0-0.0); METAMYELOCYTES %M 1 % (0-0); MICROCYTOSIS 1+ (0-0); MONOCYTE #M 1.1 10^3/ul (0.3-0.9); MONOCYTES % (M) 3 % (0-11); PLATELET ESTIMATE DECREASED; POIKILOCYTOSIS 1+ (0-0); POLYCHROMASIA 3+ (0-0); SEG NEUT #M 34.7 10^3/ul (1.6-7.5); SEGMENTED NEUTROPHILS (M) % 89 % (39-77)
[2017-09-18] MEDS: MAGNESIUM OXIDE 400 MG TAB PO ×2 (09:45→21:20)
[2017-09-18] MEDS: CHLORDIAZEPOXIDE 25 MG CAP PO ×3 (09:46→21:21)
[2017-09-18] MEDS: METOPROLOL 25 MG TAB PO ×2 (09:46→21:00)
[2017-09-18] MEDS: DULOXETINE 30 MG CAP DR PO ×2 (09:46→21:20)
[2017-09-18] MEDS: CASPOFUNGIN 50 MG in SOD CHLORIDE 0.9% 250 ML IVPB (11:42)
[2017-09-18] MEDS: MAGNESIUM SULFATE 4 GM/100 ML 100 ML IVPB (11:53)
[2017-09-18] MEDS ORDERED: METHADONE (1 MG/ML 5 ML PO UD SYG) PO (13:00)
[2017-09-18] MEDS ORDERED: METHADONE 10 MG TAB PO (13:00)
[2017-09-18] MEDS: METHADONE 10 MG TAB NGT (13:21)
[2017-09-18 15:25] LABS: ADD UMIC YES; UR AMORPHOUS CRYSTAL MODERATE /HPF (NONE SEEN); UR ASCORBIC ACID 20 mg/dL (NEGATIVE); UR BACTERIA MODERATE /HPF (NONE SEEN); UR BILIRUBIN (Dip) NEGATIVE (NEGATIVE); UR BLOOD (Dip) 3+ mg/dL (NEGATIVE); UR CLARITY CLOUDY (CLEAR); UR COLOR AMBER (YELLOW); UR GLUCOSE (Dip) NEGATIVE (NEGATIVE); UR HYALINE CAST FEW /HPF (NONE SEEN); UR KETONES (Dip) NEGATIVE (NEGATIVE); UR LEUKOCYTE ESTERASE (Dip) NEGATIVE Leu/ul (NEGATIVE); UR MUCUS FEW /HPF (NONE SEEN); UR NITRITE (Dip) NEGATIVE (NEGATIVE); UR RBC 71 /HPF (0-5); UR RENAL EPITHELIAL CELL FEW /HPF (NONE SEEN); UR SPECIFIC GRAVITY (Dip) 1.021 (1.003-1.030); UR TOTAL PROTEIN (Dip) 2+ mg/dl (NEGATIVE); UR UROBILINOGEN (Dip) NEGATIVE (NEGATIVE); UR WBC 14 /HPF (0-5)
[2017-09-18] MEDS: CEFTRIAXONE 2 GM/50 ML (PMX) 50 ML IVPB (15:48)
[2017-09-18] MEDS: ACETAMINOPHEN 650MG/20.3ML CUP PO (16:34)
[2017-09-19] MEDS ORDERED: LEVALBUTEROL (NEB) 0.63 MG/3 ML AMP INH (02:00)
[2017-09-19] MEDS: LEVALBUTEROL (HFA) 15 GM INHALER INH ×4 (02:00→19:12)
[2017-09-19] MEDS: PROPOFOL 100 ML IV ×4 (03:19→22:42)
[2017-09-19] MEDS: FENTAnyl (DRIP) 1000 mcg/100mL 100 ML IV (05:05)
[2017-09-19] MEDS: PANTOPRAZOLE 40 MG INJ IV (05:05)
[2017-09-19] MEDS: ACETAMINOPHEN 650MG/20.3ML CUP PO ×2 (05:21→20:55)
[2017-09-19 05:27] LABS: AADO2 Arterial 199.2 mmHg (7.0-24.0); Allen Test ACCEPTAB; Arterial Base Excess -6.5 mmol/L (-3.0-3); Arterial Blood Gas Oxygen Sat 95.4 mmHG (95.0-98.0); Arterial COHb 0.4 % (0.0-3.0); Arterial Fraction of Oxyhgb 94.7 % (93.0-99.0); Arterial HCO3 18.2 mmol/L (22.0-26.0); Arterial MetHb 0.3 % (0.0-1.5); Arterial Total Hemglobin 12.5 g/dl (12.0-18.0); Arterial pCO2 33.8 mmhg (35-45); MODE VENT - AC; Site Right Radial
[2017-09-19 06:19] LABS: ABNORMAL IP MESSAGE 1; HEMATOCRIT 27.3 % (42.0-52.0); HEMOGLOBIN 8.9 g/dl (14.0-18.0); MEAN CORPUSCULAR HEMOGLOBIN 28.3 pg (29.0-33.0); MEAN CORPUSCULAR HGB CONC 32.6 g/dl (32.0-37.0); MEAN CORPUSCULAR VOLUME 86.7 fl (82.0-101.0); MEAN PLATELET VOLUME 11.4 fl (7.4-10.4); NUCLEATED RED BLOOD CELLS% 0.1 /100WBC (0.0-0.0); PLATELET COUNT 84 10^3/UL (140-415); POSITIVE DIFF @See below; RED BLOOD COUNT 3.15 10^6/ul (4.70-6.10); RED CELL DISTRIBUTION WIDTH 22.5 % (11.5-14.5)
[2017-09-19 06:19] LABS: WHITE BLOOD COUNT 29.5 10^3/ul (4.8-10.8)
[2017-09-19 06:38] LABS: ADD MAN DIFF? YES
[2017-09-19 07:02] LABS: LACTIC ACID 1.2 mmol/L (0.5-2.0)
[2017-09-19 07:11] LABS: ALANINE AMINOTRANSFERASE 124 IU/L (13-69); ALBUMIN 2.5 g/dl (3.3-4.9); ALBUMIN/GLOBULIN RATIO 0.64; ALKALINE PHOSPHATASE 125 IU/L (42-121); ANION GAP 18 (8-16); ASPARTATE AMINO TRANSFERASE 173 IU/L (15-46); BILIRUBIN,INDIRECT 0.4 mg/dl (0-1.1); BILIRUBIN,TOTAL 1.2 mg/dl (0.2-1.3); BLOOD UREA NITROGEN 27 mg/dl (7-20); CARBON DIOXIDE 18 mmol/L (21-31); CHLORIDE 111 mmol/L (97-110); CREATININE 1.31 mg/dl (0.61-1.24); GLUCOSE 76 mg/dl (70-220); POTASSIUM 3.9 mmol/L (3.5-5.1); SODIUM 143 mmol/L (135-144); TOTAL PROTEIN 6.4 g/dl (6.1-8.1)
[2017-09-19 07:48] LABS: MAGNESIUM 2.2 mg/dl (1.7-2.5)
[2017-09-19 09:58] LABS: ANISOCYTOSIS 2+ (0-0); BAND NEUTROPHILS #M 3.2 10^3/ul (0.0-0.6); BAND NEUTROPHILS % (M) 11 % (0-4); ERYTHROBLAST% (NRBC) (M) 2 % (0-0); GIANT THROMBO% (M) 1 % (0-0); LYMPHOCYTES #M 0.8 10^3/ul (0.8-2.9); LYMPHOCYTES % (M) 3 % (15-51); MICROCYTOSIS 1+ (0-0); MONOCYTE #M 0.5 10^3/ul (0.3-0.9); MONOCYTES % (M) 2 % (0-11); PLATELET ESTIMATE DECREASED; POIKILOCYTOSIS 3+ (0-0); POLYCHROMASIA 1+ (0-0); SEG NEUT #M 25.7 10^3/ul (1.6-7.5); SEGMENTED NEUTROPHILS (M) % 84 % (39-77); SMUDGE%M 18 % (0-0)
[2017-09-19] MEDS: MAGNESIUM OXIDE 400 MG TAB PO ×2 (10:20→20:52)
[2017-09-19] MEDS: DULOXETINE 30 MG CAP DR PO ×2 (10:20→20:52)
[2017-09-19] MEDS: METOPROLOL 25 MG TAB PO ×2 (10:21→20:55)
[2017-09-19] MEDS: CASPOFUNGIN 50 MG in SOD CHLORIDE 0.9% 250 ML IVPB (10:41)
[2017-09-19] MEDS: METHADONE 10 MG TAB NGT (10:41)
[2017-09-19] MEDS ORDERED: VANCOMYCIN IV PER PHARMACY XX (13:00)
[2017-09-19] MEDS: MEROPENEM 500MG/50 ML (PMX) 50 ML IVPB (15:14)
[2017-09-19] MEDS: VANCOMYCIN 1 GM 250 ML IVPB ×2 (15:14→17:00)
[2017-09-19] MEDS ORDERED: VANCOMYCIN 2 GM in DEXTROSE 5% 500 ML IVPB (15:30)
[2017-09-20] MEDS: MEROPENEM 1 GM/50ML(PMX) 50 ML IVPB ×3 (00:46→21:18)
[2017-09-20] MEDS: LEVALBUTEROL (HFA) 15 GM INHALER INH ×4 (01:20→19:42)
[2017-09-20] MEDS: PROPOFOL 100 ML IV ×4 (05:09→18:20)
[2017-09-20] MEDS: PANTOPRAZOLE 40 MG INJ IV (05:12)
[2017-09-20 05:50] LABS: WHITE BLOOD COUNT 32.7 10^3/ul (4.8-10.8)
[2017-09-20 05:50] LABS: ABNORMAL IP MESSAGE 1; HEMATOCRIT 26.8 % (42.0-52.0); HEMOGLOBIN 8.8 g/dl (14.0-18.0); MEAN CORPUSCULAR HEMOGLOBIN 28.4 pg (29.0-33.0); MEAN CORPUSCULAR HGB CONC 32.8 g/dl (32.0-37.0); MEAN CORPUSCULAR VOLUME 86.5 fl (82.0-101.0); NUCLEATED RED BLOOD CELLS% 0.1 /100WBC (0.0-0.0); PLATELET COUNT 79 10^3/UL (140-415); POSITIVE DIFF @See below; RED CELL DISTRIBUTION WIDTH 22.8 % (11.5-14.5)
[2017-09-20 06:06] LABS: ADD MAN DIFF? YES
[2017-09-20 06:08] LABS: ALANINE AMINOTRANSFERASE 94 IU/L (13-69); ALBUMIN 2.5 g/dl (3.3-4.9); ALBUMIN/GLOBULIN RATIO 0.69; ALKALINE PHOSPHATASE 110 IU/L (42-121); ANION GAP 18 (8-16); ASPARTATE AMINO TRANSFERASE 58 IU/L (15-46); BILIRUBIN,INDIRECT 0.3 mg/dl (0-1.1); BILIRUBIN,TOTAL 1.1 mg/dl (0.2-1.3); BLOOD UREA NITROGEN 30 mg/dl (7-20); CALCIUM 8.1 mg/dl (8.4-10.2); CARBON DIOXIDE 20 mmol/L (21-31); CHLORIDE 110 mmol/L (97-110); GLUCOSE 98 mg/dl (70-220); POTASSIUM 3.8 mmol/L (3.5-5.1); SODIUM 144 mmol/L (135-144); TOTAL PROTEIN 6.1 g/dl (6.1-8.1)
[2017-09-20] MEDS: VANCOMYCIN 1.5 GM in SOD CHLORIDE 0.9% 250 ML IVPB ×2 (06:18→15:40)
[2017-09-20] MEDS: DULOXETINE 30 MG CAP DR PO ×2 (09:05→21:12)
[2017-09-20] MEDS: METHADONE 10 MG TAB NGT (09:05)
[2017-09-20] MEDS: MAGNESIUM OXIDE 400 MG TAB PO ×2 (09:05→21:12)
[2017-09-20] MEDS: METOPROLOL 25 MG TAB PO ×2 (09:06→21:12)
[2017-09-20 09:32] LABS: ANISOCYTOSIS 2+ (0-0); POIKILOCYTOSIS 3+ (0-0)
[2017-09-20 10:10] LABS: BAND NEUTROPHILS #M 4.9 10^3/ul (0.0-0.6); BAND NEUTROPHILS % (M) 15 % (0-4); EOSINOPHILS % (M) 2 % (0-7); ERYTHROBLAST% (NRBC) (M) 2 % (0-0); GIANT THROMBO% (M) 2 % (0-0); LYMPHOCYTES #M 0.6 10^3/ul (0.8-2.9); LYMPHOCYTES % (M) 2 % (15-51); MONOCYTE #M 0.6 10^3/ul (0.3-0.9); MONOCYTES % (M) 2 % (0-11); PLATELET ESTIMATE SIG DECREASED; POLYCHROMASIA 2+ (0-0); SEG NEUT #M 27.4 10^3/ul (1.6-7.5); SEGMENTED NEUTROPHILS (M) % 79 % (39-77); SMUDGE%M 51 % (0-0)
[2017-09-20] MEDS: CASPOFUNGIN 50 MG in SOD CHLORIDE 0.9% 250 ML IVPB (11:18)
[2017-09-21] MEDS: LEVALBUTEROL (HFA) 15 GM INHALER INH ×4 (01:33→19:16)
[2017-09-21] MEDS: VANCOMYCIN 1.5 GM in SOD CHLORIDE 0.9% 250 ML IVPB (04:00)
[2017-09-21 05:27] LABS: WHITE BLOOD COUNT 33.8 10^3/ul (4.8-10.8)
[2017-09-21 05:27] LABS: ABNORMAL IP MESSAGE 1; HEMATOCRIT 28.6 % (42.0-52.0); HEMOGLOBIN 9.1 g/dl (14.0-18.0); MEAN CORPUSCULAR HEMOGLOBIN 27.7 pg (29.0-33.0); MEAN CORPUSCULAR HGB CONC 31.8 g/dl (32.0-37.0); MEAN CORPUSCULAR VOLUME 87.2 fl (82.0-101.0); MEAN PLATELET VOLUME 10.8 fl (7.4-10.4); NUCLEATED RED BLOOD CELLS% 0.1 /100WBC (0.0-0.0); PLATELET COUNT 97 10^3/UL (140-415); POSITIVE DIFF @See below; RED BLOOD COUNT 3.28 10^6/ul (4.70-6.10); RED CELL DISTRIBUTION WIDTH 22.8 % (11.5-14.5)
[2017-09-21 05:37] LABS: ALANINE AMINOTRANSFERASE 69 IU/L (13-69); ALBUMIN 2.4 g/dl (3.3-4.9); ALBUMIN/GLOBULIN RATIO 0.63; ALKALINE PHOSPHATASE 114 IU/L (42-121); ANION GAP 18 (8-16); ASPARTATE AMINO TRANSFERASE 28 IU/L (15-46); BILIRUBIN,INDIRECT 0.5 mg/dl (0-1.1); BILIRUBIN,TOTAL 1.9 mg/dl (0.2-1.3); BLOOD UREA NITROGEN 30 mg/dl (7-20); CALCIUM 8.2 mg/dl (8.4-10.2); CARBON DIOXIDE 20 mmol/L (21-31); CHLORIDE 112 mmol/L (97-110); CREATININE 1.28 mg/dl (0.61-1.24); GLUCOSE 93 mg/dl (70-220); MAGNESIUM 1.9 mg/dl (1.7-2.5); POTASSIUM 3.7 mmol/L (3.5-5.1); SODIUM 146 mmol/L (135-144); TOTAL PROTEIN 6.2 g/dl (6.1-8.1)
[2017-09-21] MEDS: PROPOFOL 100 ML IV ×5 (05:45→20:22)
[2017-09-21] MEDS: PANTOPRAZOLE 40 MG INJ IV (06:11)
[2017-09-21 06:26] LABS: ADD MAN DIFF? YES
[2017-09-21 07:20] LABS: ANISOCYTOSIS 2+ (0-0); BAND NEUTROPHILS % (M) 15 % (0-4); BURR CELLS 1+ (0-0); HYPOCHROMASIA 2+ (0-0); LYMPHOCYTES % (M) 3 % (15-51); MONOCYTES % (M) 3 % (0-11); PLATELET ESTIMATE DECREASED; POIKILOCYTOSIS 2+ (0-0); POLYCHROMASIA 1+ (0-0); SEG NEUT #M 28.4 10^3/ul (1.6-7.5); SEGMENTED NEUTROPHILS (M) % 79 % (39-77); SMUDGE%M 3 % (0-0); TARGET CELLS 1+ (0-0)
[2017-09-21] MEDS: VANCOMYCIN 1 GM 250 ML IVPB ×2 (07:37→18:42)
[2017-09-21] MEDS: FENTAnyl (DRIP) 1000 mcg/100mL 100 ML IV (08:11)
[2017-09-21] MEDS: DULOXETINE 30 MG CAP DR PO ×2 (08:56→21:33)
[2017-09-21] MEDS: MAGNESIUM OXIDE 400 MG TAB PO ×2 (08:57→21:33)
[2017-09-21] MEDS: METHADONE 10 MG TAB NGT (08:57)
[2017-09-21] MEDS: METOPROLOL 25 MG TAB PO ×2 (09:00→21:33)
[2017-09-21] MEDS: MEROPENEM 1 GM/50ML(PMX) 50 ML IVPB ×2 (09:41→21:32)
[2017-09-21] MEDS: FUROSEMIDE 40 MG INJ IV (10:08)
[2017-09-21] MEDS: CASPOFUNGIN 50 MG in SOD CHLORIDE 0.9% 250 ML IVPB (10:31)
[2017-09-22] MEDS: SOD CHLORIDE 0.9% 500 ML IV (00:58)
[2017-09-22] MEDS: LEVALBUTEROL (HFA) 15 GM INHALER INH ×4 (01:19→19:44)
[2017-09-22] MEDS: ALBUMIN HUMAN 5% 250 ML IV (02:05)
[2017-09-22] MEDS: PROPOFOL 100 ML IV ×4 (02:30→21:43)
[2017-09-22 05:18] LABS: ADD MAN DIFF? NO
[2017-09-22 05:27] LABS: WHITE BLOOD COUNT 21.9 10^3/ul (4.8-10.8)
[2017-09-22 05:27] LABS: ABNORMAL IP MESSAGE 1; BASOPHIL # 0.1 10^3/ul (0.0-0.1); BASOPHILS % 0.3 % (0.0-2.0); EOSINOPHILS # 0.4 10^3/ul (0.0-0.5); EOSINOPHILS % 1.6 % (0.0-7.0); HEMATOCRIT 24.1 % (42.0-52.0); HEMOGLOBIN 7.9 g/dl (14.0-18.0); LYMPHOCYTES # 1.6 10^3/ul (0.8-2.9); LYMPHOCYTES % 7.4 % (15.0-51.0); MEAN CORPUSCULAR HEMOGLOBIN 27.9 pg (29.0-33.0); MEAN CORPUSCULAR HGB CONC 32.8 g/dl (32.0-37.0); MEAN CORPUSCULAR VOLUME 85.2 fl (82.0-101.0); MEAN PLATELET VOLUME 11.2 fl (7.4-10.4); MONOCYTE # 1.6 10^3/ul (0.3-0.9); MONOCYTES % 7.1 % (0.0-11.0); NEUTROPHILS % 82.3 % (39.0-77.0); NUCLEATED RED BLOOD CELLS% 0.1 /100WBC (0.0-0.0); PLATELET COUNT 107 10^3/UL (140-415); POSITIVE DIFF @See below; RED BLOOD COUNT 2.83 10^6/ul (4.70-6.10); RED CELL DISTRIBUTION WIDTH 22.5 % (11.5-14.5)
[2017-09-22 05:40] LABS: ALANINE AMINOTRANSFERASE 50 IU/L (13-69); ALBUMIN 2.3 g/dl (3.3-4.9); ALBUMIN/GLOBULIN RATIO 0.71; ALKALINE PHOSPHATASE 129 IU/L (42-121); ANION GAP 14 (8-16); ASPARTATE AMINO TRANSFERASE 27 IU/L (15-46); BILIRUBIN,INDIRECT 0.4 mg/dl (0-1.1); BILIRUBIN,TOTAL 1.8 mg/dl (0.2-1.3); BLOOD UREA NITROGEN 31 mg/dl (7-20); CALCIUM 7.8 mg/dl (8.4-10.2); CARBON DIOXIDE 24 mmol/L (21-31); CHLORIDE 113 mmol/L (97-110); CREATININE 1.08 mg/dl (0.61-1.24); GLUCOSE 102 mg/dl (70-220); POTASSIUM 3.5 mmol/L (3.5-5.1); SODIUM 147 mmol/L (135-144); TOTAL PROTEIN 5.5 g/dl (6.1-8.1)
[2017-09-22 05:56] LABS: LACTIC ACID 1.5 mmol/L (0.5-2.0)
[2017-09-22] MEDS: VANCOMYCIN 1 GM 250 ML IVPB ×2 (06:08→19:16)
[2017-09-22] MEDS: PANTOPRAZOLE 40 MG INJ IV (06:08)
[2017-09-22] MEDS: METHADONE (1 MG/ML 5 ML PO UD SYG) PO (09:00)
[2017-09-22] MEDS: FUROSEMIDE 40 MG INJ IV (09:57)
[2017-09-22] MEDS: DULOXETINE 30 MG CAP DR PO (09:57)
[2017-09-22] MEDS: MAGNESIUM OXIDE 400 MG TAB PO ×2 (09:58→21:39)
[2017-09-22] MEDS: METOPROLOL 25 MG TAB PO ×2 (09:59→21:00)
[2017-09-22] MEDS ORDERED: METHADONE 10 MG TAB PO (10:00)
[2017-09-22] MEDS: MEROPENEM 1 GM/50ML(PMX) 50 ML IVPB ×2 (10:13→21:00)
[2017-09-22] MEDS: ACETAMINOPHEN 650MG/20.3ML CUP PO (10:53)
[2017-09-22] MEDS: METHADONE 10 MG TAB PO (10:54)
[2017-09-22] MEDS: CASPOFUNGIN 50 MG in SOD CHLORIDE 0.9% 250 ML IVPB (12:25)
[2017-09-22] MEDS: FENTAnyl (DRIP) 1000 mcg/100mL 100 ML IV (21:47)
[2017-09-23] MEDS: LEVALBUTEROL (HFA) 15 GM INHALER INH ×4 (01:32→19:41)
[2017-09-23] MEDS: PROPOFOL 100 ML IV ×6 (02:04→20:25)
[2017-09-23 05:39] LABS: ADD MAN DIFF? NO
[2017-09-23 05:45] LABS: ABNORMAL IP MESSAGE 1; BASOPHIL # 0.1 10^3/ul (0.0-0.1); BASOPHILS % 0.3 % (0.0-2.0); EOSINOPHILS # 0.5 10^3/ul (0.0-0.5); HEMATOCRIT 25.3 % (42.0-52.0); HEMOGLOBIN 8.1 g/dl (14.0-18.0); LYMPHOCYTES # 2.2 10^3/ul (0.8-2.9); LYMPHOCYTES % 9.1 % (15.0-51.0); MEAN CORPUSCULAR HEMOGLOBIN 27.6 pg (29.0-33.0); MEAN CORPUSCULAR VOLUME 86.1 fl (82.0-101.0); MEAN PLATELET VOLUME 12.5 fl (7.4-10.4); MONOCYTE # 1.8 10^3/ul (0.3-0.9); MONOCYTES % 7.6 % (0.0-11.0); NEUTROPHIL # 18.7 10^3/ul (1.6-7.5); NEUTROPHILS % 79.4 % (39.0-77.0); PLATELET COUNT 134 10^3/UL (140-415); POSITIVE DIFF @See below; RED BLOOD COUNT 2.94 10^6/ul (4.70-6.10); RED CELL DISTRIBUTION WIDTH 22.4 % (11.5-14.5)
[2017-09-23 05:45] LABS: WHITE BLOOD COUNT 23.6 10^3/ul (4.8-10.8)
[2017-09-23 06:06] LABS: ALANINE AMINOTRANSFERASE 43 IU/L (13-69); ALBUMIN 2.4 g/dl (3.3-4.9); ALBUMIN/GLOBULIN RATIO 0.64; ALKALINE PHOSPHATASE 136 IU/L (42-121); ANION GAP 14 (8-16); ASPARTATE AMINO TRANSFERASE 25 IU/L (15-46); BILIRUBIN,INDIRECT 0.4 mg/dl (0-1.1); BILIRUBIN,TOTAL 1.5 mg/dl (0.2-1.3); BLOOD UREA NITROGEN 30 mg/dl (7-20); CARBON DIOXIDE 25 mmol/L (21-31); CHLORIDE 112 mmol/L (97-110); CREATININE 1.08 mg/dl (0.61-1.24); GLUCOSE 94 mg/dl (70-220); POTASSIUM 3.7 mmol/L (3.5-5.1); SODIUM 147 mmol/L (135-144); TOTAL PROTEIN 6.1 g/dl (6.1-8.1)
[2017-09-23] MEDS: PANTOPRAZOLE 40 MG INJ IV (06:41)
[2017-09-23] MEDS: VANCOMYCIN 1 GM 250 ML IVPB (06:42)
[2017-09-23 07:12] LABS: VANCOMYCIN,TROUGH 20.6 ug/ml (10.0-20.0)
[2017-09-23] MEDS: METOPROLOL 25 MG TAB PO ×2 (09:00→20:26)
[2017-09-23] MEDS: METHADONE 10 MG TAB PO (09:21)
[2017-09-23] MEDS: MAGNESIUM OXIDE 400 MG TAB PO ×2 (09:21→20:26)
[2017-09-23] MEDS: FUROSEMIDE 40 MG INJ IV (09:22)
[2017-09-23] MEDS: MEROPENEM 1 GM/50ML(PMX) 50 ML IVPB ×2 (10:15→20:25)
[2017-09-23] MEDS: CASPOFUNGIN 50 MG in SOD CHLORIDE 0.9% 250 ML IVPB (11:39)
[2017-09-23] MEDS: FENTAnyl (DRIP) 1000 mcg/100mL 100 ML IV (13:30)
[2017-09-23] MEDS: VANCOMYCIN 750 MG in DEXTROSE 5% 150 ML IVPB (13:44)
[2017-09-23] MEDS: LIDOCAINE 1%/EPI 30 ML INJ (16:53)
[2017-09-23 18:40] LABS: ADD MAN DIFF? NO
[2017-09-23 18:45] LABS: WHITE BLOOD COUNT 20.4 10^3/ul (4.8-10.8)
[2017-09-23 18:45] LABS: ABNORMAL IP MESSAGE 1; BASOPHIL # 0.1 10^3/ul (0.0-0.1); BASOPHILS % 0.2 % (0.0-2.0); EOSINOPHILS # 0.3 10^3/ul (0.0-0.5); EOSINOPHILS % 1.6 % (0.0-7.0); HEMATOCRIT 23.2 % (42.0-52.0); HEMOGLOBIN 7.4 g/dl (14.0-18.0); LYMPHOCYTES # 1.1 10^3/ul (0.8-2.9); LYMPHOCYTES % 5.2 % (15.0-51.0); MEAN CORPUSCULAR HEMOGLOBIN 27.6 pg (29.0-33.0); MEAN CORPUSCULAR HGB CONC 31.9 g/dl (32.0-37.0); MEAN CORPUSCULAR VOLUME 86.6 fl (82.0-101.0); MEAN PLATELET VOLUME 11.2 fl (7.4-10.4); MONOCYTE # 1.4 10^3/ul (0.3-0.9); MONOCYTES % 6.6 % (0.0-11.0); NEUTROPHIL # 16.9 10^3/ul (1.6-7.5); NEUTROPHILS % 83.2 % (39.0-77.0); NUCLEATED RED BLOOD CELLS% 0.1 /100WBC (0.0-0.0); PLATELET COUNT 133 10^3/UL (140-415); POSITIVE DIFF @See below; RED BLOOD COUNT 2.68 10^6/ul (4.70-6.10); RED CELL DISTRIBUTION WIDTH 22.1 % (11.5-14.5)
[2017-09-23] MEDS: ACETAMINOPHEN 650MG/20.3ML CUP PO (20:25)
[2017-09-24] MEDS: VANCOMYCIN 750 MG in DEXTROSE 5% 150 ML IVPB (00:09)
[2017-09-24] MEDS: LEVALBUTEROL (HFA) 15 GM INHALER INH ×4 (01:48→19:35)
[2017-09-24] MEDS: PROPOFOL 100 ML IV ×2 (04:10→12:00)
[2017-09-24 06:13] LABS: ADD MAN DIFF? NO
[2017-09-24 06:14] LABS: ABNORMAL IP MESSAGE 1; BASOPHIL # 0.1 10^3/ul (0.0-0.1); BASOPHILS % 0.3 % (0.0-2.0); EOSINOPHILS # 0.4 10^3/ul (0.0-0.5); HEMATOCRIT 21.1 % (42.0-52.0); LYMPHOCYTES # 1.8 10^3/ul (0.8-2.9); MEAN CORPUSCULAR HEMOGLOBIN 27.5 pg (29.0-33.0); MEAN CORPUSCULAR HGB CONC 32.2 g/dl (32.0-37.0); MEAN CORPUSCULAR VOLUME 85.4 fl (82.0-101.0); MEAN PLATELET VOLUME 11.4 fl (7.4-10.4); MONOCYTE # 1.4 10^3/ul (0.3-0.9); MONOCYTES % 7.2 % (0.0-11.0); NEUTROPHILS % 79.6 % (39.0-77.0); PLATELET COUNT 141 10^3/UL (140-415); POSITIVE DIFF @See below; RED BLOOD COUNT 2.47 10^6/ul (4.70-6.10); RED CELL DISTRIBUTION WIDTH 22.1 % (11.5-14.5)
[2017-09-24 06:14] LABS: WHITE BLOOD COUNT 20.1 10^3/ul (4.8-10.8)
[2017-09-24] MEDS: PANTOPRAZOLE 40 MG INJ IV (06:44)
[2017-09-24 06:58] LABS: ANION GAP 13 (8-16); BLOOD UREA NITROGEN 31 mg/dl (7-20); CALCIUM 7.7 mg/dl (8.4-10.2); CARBON DIOXIDE 22 mmol/L (21-31); CHLORIDE 114 mmol/L (97-110); CREATININE 1.14 mg/dl (0.61-1.24); GLUCOSE 93 mg/dl (70-220); MAGNESIUM 1.7 mg/dl (1.7-2.5); PHOSPHORUS 4.1 mg/dl (2.5-4.9); POTASSIUM 3.6 mmol/L (3.5-5.1); SODIUM 145 mmol/L (135-144)
[2017-09-24 07:12] LABS: HEMOGLOBIN 6.8 g/dl (14.0-18.0)
[2017-09-24] MEDS: MEROPENEM 1 GM/50ML(PMX) 50 ML IVPB ×2 (09:10→20:56)
[2017-09-24] MEDS: FUROSEMIDE 40 MG INJ IV ×2 (09:10→20:54)
[2017-09-24] MEDS: METHADONE 10 MG TAB PO (09:11)
[2017-09-24] MEDS: MAGNESIUM OXIDE 400 MG TAB PO ×2 (09:11→20:54)
[2017-09-24] MEDS: METOPROLOL 25 MG TAB PO ×2 (09:12→20:54)
[2017-09-24 10:06] LABS: IMMEDIATE SPIN CROSSMATCH 1 1
[2017-09-24] MEDS: CASPOFUNGIN 50 MG in SOD CHLORIDE 0.9% 250 ML IVPB (12:30)
[2017-09-24] MEDS: DULOXETINE 30 MG CAP DR PO (20:54)
[2017-09-24] MEDS: BUSPIRONE 5 MG TAB PO (20:55)
[2017-09-24] MEDS: VANCOMYCIN 1.5 GM in SOD CHLORIDE 0.9% 250 ML IVPB (21:06)
[2017-09-25] MEDS: LEVALBUTEROL (HFA) 15 GM INHALER INH ×4 (01:22→19:57)
[2017-09-25 05:08] LABS: ADD MAN DIFF? NO
[2017-09-25] MEDS: PANTOPRAZOLE 40 MG INJ IV (05:09)
[2017-09-25 05:11] LABS: BASOPHIL # 0.1 10^3/ul (0.0-0.1); BASOPHILS % 0.5 % (0.0-2.0); EOSINOPHILS # 0.3 10^3/ul (0.0-0.5); EOSINOPHILS % 1.5 % (0.0-7.0); HEMATOCRIT 25.8 % (42.0-52.0); HEMOGLOBIN 8.4 g/dl (14.0-18.0); LYMPHOCYTES # 1.7 10^3/ul (0.8-2.9); LYMPHOCYTES % 7.8 % (15.0-51.0); MEAN CORPUSCULAR HEMOGLOBIN 27.5 pg (29.0-33.0); MEAN CORPUSCULAR HGB CONC 32.6 g/dl (32.0-37.0); MEAN CORPUSCULAR VOLUME 84.6 fl (82.0-101.0); MEAN PLATELET VOLUME 10.6 fl (7.4-10.4); MONOCYTE # 1.5 10^3/ul (0.3-0.9); MONOCYTES % 6.7 % (0.0-11.0); NEUTROPHIL # 17.4 10^3/ul (1.6-7.5); NEUTROPHILS % 79.5 % (39.0-77.0); NUCLEATED RED BLOOD CELLS # 0.1 10^3/ul (0.0-0.0); NUCLEATED RED BLOOD CELLS% 0.2 /100WBC (0.0-0.0); PLATELET COUNT 206 10^3/UL (140-415); RED BLOOD COUNT 3.05 10^6/ul (4.70-6.10); RED CELL DISTRIBUTION WIDTH 21.2 % (11.5-14.5)
[2017-09-25 05:11] LABS: WHITE BLOOD COUNT 21.9 10^3/ul (4.8-10.8)
[2017-09-25] MEDS: ACETAMINOPHEN 650MG/20.3ML CUP PO (05:11)
[2017-09-25 05:46] LABS: ANION GAP 14 (8-16); BLOOD UREA NITROGEN 31 mg/dl (7-20); CALCIUM 8.1 mg/dl (8.4-10.2); CARBON DIOXIDE 24 mmol/L (21-31); CHLORIDE 112 mmol/L (97-110); CREATININE 1.16 mg/dl (0.61-1.24); GLUCOSE 98 mg/dl (70-220); POTASSIUM 3.4 mmol/L (3.5-5.1); SODIUM 147 mmol/L (135-144)
[2017-09-25] MEDS: FUROSEMIDE 40 MG INJ IV ×2 (08:36→20:55)
[2017-09-25] MEDS: MEROPENEM 1 GM/50ML(PMX) 50 ML IVPB ×2 (08:40→20:53)
[2017-09-25] MEDS: METOPROLOL 25 MG TAB PO ×2 (09:00→20:54)
[2017-09-25] MEDS: BUSPIRONE 5 MG TAB PO ×2 (09:00→20:53)
[2017-09-25] MEDS: MAGNESIUM OXIDE 400 MG TAB PO ×2 (09:00→20:53)
[2017-09-25] MEDS: DULOXETINE 30 MG CAP DR PO ×2 (09:00→20:53)
[2017-09-25] MEDS: CASPOFUNGIN 50 MG in SOD CHLORIDE 0.9% 250 ML IVPB (11:27)
[2017-09-25] MEDS ORDERED: POTASSIUM CHLORIDE 50 ML IVPB (11:30)
[2017-09-25] MEDS ORDERED: POTASSIUM CHLORIDE 10 MEQ in SOD CHLORIDE 0.9% 50 ML IV (12:00)
[2017-09-25] MEDS ORDERED: METOCLOPRAMIDE 10 MG INJ IV (12:30)
[2017-09-25] MEDS ORDERED: PROPOFOL 0 ML (12:30)
[2017-09-25] MEDS ORDERED: OXYCODONE/ACETAMINOPHEN (5/325) TAB PO ×2 (12:30)
[2017-09-25] MEDS: POTASSIUM CHLORIDE 50 ML IVPB (12:30)
[2017-09-25] MEDS ORDERED: EPHEDrine SULFATE 50 MG/5 ML SYG IV (12:30)
[2017-09-25] MEDS ORDERED: MIDAZOLAM 1 MG/ML 2 ML INJ IV (12:30)
[2017-09-25] MEDS ORDERED: MEPERIDINE 25 MG INJ IV (12:30)
[2017-09-25] MEDS ORDERED: DIPHENHYDRAMINE 50 MG INJ IV (12:30)
[2017-09-25] MEDS ORDERED: ONDANSETRON 4 MG INJ IV (12:30)
[2017-09-25] MEDS ORDERED: FENTAnyl 50 MCG/ML VIAL IV ×2 (12:30)
[2017-09-25] MEDS ORDERED: hydrALAzine 20 MG INJ IV (12:30)
[2017-09-25] MEDS ORDERED: LABETALOL HCL 20MG INJ IV (12:30)
[2017-09-25] MEDS: CEFAZOLIN 2 GM/50 ML (PMX) 50 ML IVPB (12:42)
[2017-09-25] MEDS: POTASSIUM CHLORIDE 10 MEQ in SOD CHLORIDE 0.9% 50 ML IV ×2 (13:13→21:17)
[2017-09-25] MEDS: FENTAnyl 50 MCG/ML VIAL IV (13:13)
[2017-09-25] MEDS: METHADONE 10 MG TAB PO (16:44)
[2017-09-25] MEDS: PROPOFOL 100 ML IV (22:00)
[2017-09-25] MEDS: VANCOMYCIN 1.5 GM in SOD CHLORIDE 0.9% 250 ML IVPB (22:39)
[2017-09-26] MEDS: LEVALBUTEROL (HFA) 15 GM INHALER INH ×4 (04:02→20:14)
[2017-09-26] MEDS: PANTOPRAZOLE 40 MG INJ IV (04:57)
[2017-09-26 05:31] LABS: ADD MAN DIFF? NO
[2017-09-26 05:34] LABS: WHITE BLOOD COUNT 20.4 10^3/ul (4.8-10.8)
[2017-09-26 05:34] LABS: ABNORMAL IP MESSAGE 1; BASOPHIL # 0.1 10^3/ul (0.0-0.1); BASOPHILS % 0.2 % (0.0-2.0); EOSINOPHILS # 0.5 10^3/ul (0.0-0.5); EOSINOPHILS % 2.6 % (0.0-7.0); HEMATOCRIT 25.9 % (42.0-52.0); HEMOGLOBIN 8.4 g/dl (14.0-18.0); LYMPHOCYTES # 1.7 10^3/ul (0.8-2.9); LYMPHOCYTES % 8.4 % (15.0-51.0); MEAN CORPUSCULAR HEMOGLOBIN 27.8 pg (29.0-33.0); MEAN CORPUSCULAR HGB CONC 32.4 g/dl (32.0-37.0); MEAN CORPUSCULAR VOLUME 85.8 fl (82.0-101.0); MEAN PLATELET VOLUME 10.4 fl (7.4-10.4); MONOCYTE # 1.5 10^3/ul (0.3-0.9); MONOCYTES % 7.5 % (0.0-11.0); NEUTROPHIL # 16.1 10^3/ul (1.6-7.5); NEUTROPHILS % 78.9 % (39.0-77.0); NUCLEATED RED BLOOD CELLS # 0.1 10^3/ul (0.0-0.0); NUCLEATED RED BLOOD CELLS% 0.2 /100WBC (0.0-0.0); PLATELET COUNT 242 10^3/UL (140-415); POSITIVE DIFF @See below; RED BLOOD COUNT 3.02 10^6/ul (4.70-6.10); RED CELL DISTRIBUTION WIDTH 21.5 % (11.5-14.5)
[2017-09-26 06:18] LABS: ALANINE AMINOTRANSFERASE 39 IU/L (13-69); ALBUMIN 2.6 g/dl (3.3-4.9); ALBUMIN/GLOBULIN RATIO 0.63; ALKALINE PHOSPHATASE 119 IU/L (42-121); ANION GAP 14 (8-16); ASPARTATE AMINO TRANSFERASE 44 IU/L (15-46); BILIRUBIN,INDIRECT 0.4 mg/dl (0-1.1); BILIRUBIN,TOTAL 0.6 mg/dl (0.2-1.3); BLOOD UREA NITROGEN 33 mg/dl (7-20); CALCIUM 8.3 mg/dl (8.4-10.2); CARBON DIOXIDE 28 mmol/L (21-31); CHLORIDE 113 mmol/L (97-110); CREATININE 1.09 mg/dl (0.61-1.24); GLUCOSE 115 mg/dl (70-220); SODIUM 152 mmol/L (135-144); TOTAL PROTEIN 6.7 g/dl (6.1-8.1)
[2017-09-26] MEDS: MEROPENEM 1 GM/50ML(PMX) 50 ML IVPB ×2 (09:43→21:26)
[2017-09-26] MEDS: METHADONE 10 MG TAB PO (09:43)
[2017-09-26] MEDS: DULOXETINE 30 MG CAP DR PO ×2 (09:43→21:18)
[2017-09-26] MEDS: PROPOFOL 100 ML IV ×2 (09:44→21:27)
[2017-09-26] MEDS: LORAZEPAM 2 MG INJ IV (09:47)
[2017-09-26] MEDS: MAGNESIUM OXIDE 400 MG TAB PO ×2 (09:50→21:19)
[2017-09-26] MEDS: BUSPIRONE 5 MG TAB PO ×2 (09:50→21:19)
[2017-09-26] MEDS: METOPROLOL 25 MG TAB PO ×2 (09:50→21:19)
[2017-09-26] MEDS: KCL 30 MEQ in NS 250 ML IVPB X1 IVPB (09:51)
[2017-09-26] MEDS: CASPOFUNGIN 50 MG in SOD CHLORIDE 0.9% 250 ML IVPB (12:36)
[2017-09-26] MEDS: ENOXAPARIN 40 MG/0.4 ML SYG SC (12:37)
[2017-09-27] MEDS: VANCOMYCIN 1.5 GM in SOD CHLORIDE 0.9% 250 ML IVPB ×2 (00:29→23:02)
[2017-09-27] MEDS: LEVALBUTEROL (HFA) 15 GM INHALER INH ×4 (02:17→19:57)
[2017-09-27] MEDS: PANTOPRAZOLE 40 MG INJ IV (05:45)
[2017-09-27 06:00] LABS: ADD MAN DIFF? NO
[2017-09-27 06:02] LABS: WHITE BLOOD COUNT 16.7 10^3/ul (4.8-10.8)
[2017-09-27 06:02] LABS: BASOPHIL # 0.1 10^3/ul (0.0-0.1); BASOPHILS % 0.5 % (0.0-2.0); EOSINOPHILS # 0.5 10^3/ul (0.0-0.5); EOSINOPHILS % 2.8 % (0.0-7.0); HEMATOCRIT 24.7 % (42.0-52.0); HEMOGLOBIN 7.9 g/dl (14.0-18.0); LYMPHOCYTES # 1.4 10^3/ul (0.8-2.9); LYMPHOCYTES % 8.3 % (15.0-51.0); MEAN CORPUSCULAR HEMOGLOBIN 27.5 pg (29.0-33.0); MEAN CORPUSCULAR VOLUME 86.1 fl (82.0-101.0); MEAN PLATELET VOLUME 10.1 fl (7.4-10.4); MONOCYTE # 1.4 10^3/ul (0.3-0.9); MONOCYTES % 8.4 % (0.0-11.0); NEUTROPHILS % 77.7 % (39.0-77.0); NUCLEATED RED BLOOD CELLS # 0.4 10^3/ul (0.0-0.0); NUCLEATED RED BLOOD CELLS% 2.6 /100WBC (0.0-0.0); PLATELET COUNT 267 10^3/UL (140-415); RED BLOOD COUNT 2.87 10^6/ul (4.70-6.10); RED CELL DISTRIBUTION WIDTH 21.6 % (11.5-14.5)
[2017-09-27 07:12] LABS: ANION GAP 13 (8-16); BLOOD UREA NITROGEN 35 mg/dl (7-20); CALCIUM 8.1 mg/dl (8.4-10.2); CARBON DIOXIDE 27 mmol/L (21-31); CHLORIDE 113 mmol/L (97-110); CREATININE 0.96 mg/dl (0.61-1.24); GLUCOSE 103 mg/dl (70-220); MAGNESIUM 1.7 mg/dl (1.7-2.5); POTASSIUM 3.4 mmol/L (3.5-5.1); SODIUM 150 mmol/L (135-144)
[2017-09-27] MEDS: MEROPENEM 1 GM/50ML(PMX) 50 ML IVPB ×2 (08:58→21:06)
[2017-09-27] MEDS: MAGNESIUM OXIDE 400 MG TAB PO ×2 (08:58→21:06)
[2017-09-27] MEDS: DULOXETINE 30 MG CAP DR PO ×2 (08:58→21:06)
[2017-09-27] MEDS: BUSPIRONE 5 MG TAB PO ×2 (08:58→21:06)
[2017-09-27] MEDS: METOPROLOL 25 MG TAB PO ×2 (09:03→21:00)
[2017-09-27] MEDS: ENOXAPARIN 40 MG/0.4 ML SYG SC (09:04)
[2017-09-27] MEDS: METHADONE 10 MG TAB PO (09:06)
[2017-09-27] MEDS: PROPOFOL 100 ML IV ×2 (10:00→22:00)
[2017-09-27] MEDS ORDERED: POTASSIUM CHLORIDE 50 ML (10:48)
[2017-09-27] MEDS: POTASSIUM CHLORIDE 10 MEQ in SOD CHLORIDE 0.9% 50 ML IV (10:51)
[2017-09-27 22:27] LABS: ANION GAP 16 (8-16); BLOOD UREA NITROGEN 33 mg/dl (7-20); CALCIUM 7.2 mg/dl (8.4-10.2); CARBON DIOXIDE 28 mmol/L (21-31); CHLORIDE 116 mmol/L (97-110); CREATININE 0.77 mg/dl (0.61-1.24); GLUCOSE 91 mg/dl (70-220); MAGNESIUM 1.7 mg/dl (1.7-2.5); POTASSIUM 3.5 mmol/L (3.5-5.1); SODIUM 156 mmol/L (135-144)
[2017-09-27 22:31] LABS: VANCOMYCIN,TROUGH 11.1 ug/ml (10.0-20.0)
[2017-09-27] MEDS: POTASSIUM CHLORIDE 50 ML IVPB (23:27)
[2017-09-27] MEDS: LORAZEPAM 2 MG INJ IV (23:49)
[2017-09-28] MEDS: LEVALBUTEROL (HFA) 15 GM INHALER INH ×4 (03:17→20:00)
[2017-09-28 05:13] LABS: ABNORMAL IP MESSAGE 1; ADD MAN DIFF? NO; BASOPHIL # 0.1 10^3/ul (0.0-0.1); BASOPHILS % 0.4 % (0.0-2.0); EOSINOPHILS # 0.9 10^3/ul (0.0-0.5); EOSINOPHILS % 4.6 % (0.0-7.0); HEMATOCRIT 26.9 % (42.0-52.0); HEMOGLOBIN 8.4 g/dl (14.0-18.0); LYMPHOCYTES # 2.1 10^3/ul (0.8-2.9); LYMPHOCYTES % 10.9 % (15.0-51.0); MEAN CORPUSCULAR HEMOGLOBIN 27.8 pg (29.0-33.0); MEAN CORPUSCULAR HGB CONC 31.2 g/dl (32.0-37.0); MEAN CORPUSCULAR VOLUME 89.1 fl (82.0-101.0); MEAN PLATELET VOLUME 10.6 fl (7.4-10.4); MONOCYTE # 1.4 10^3/ul (0.3-0.9); MONOCYTES % 7.2 % (0.0-11.0); NEUTROPHIL # 14.4 10^3/ul (1.6-7.5); NEUTROPHILS % 75.3 % (39.0-77.0); NUCLEATED RED BLOOD CELLS% 0.1 /100WBC (0.0-0.0); PLATELET COUNT 290 10^3/UL (140-415); POSITIVE DIFF @See below; RED BLOOD COUNT 3.02 10^6/ul (4.70-6.10); RED CELL DISTRIBUTION WIDTH 22.5 % (11.5-14.5)
[2017-09-28 05:13] LABS: WHITE BLOOD COUNT 19.1 10^3/ul (4.8-10.8)
[2017-09-28] MEDS: PANTOPRAZOLE 40 MG INJ IV (05:56)
[2017-09-28 05:59] LABS: ANION GAP 12 (8-16); BLOOD UREA NITROGEN 34 mg/dl (7-20); CALCIUM 8.3 mg/dl (8.4-10.2); CARBON DIOXIDE 29 mmol/L (21-31); CHLORIDE 112 mmol/L (97-110); CREATININE 0.85 mg/dl (0.61-1.24); GLUCOSE 103 mg/dl (70-220); POTASSIUM 3.6 mmol/L (3.5-5.1); SODIUM 149 mmol/L (135-144)
[2017-09-28] MEDS: POTASSIUM CHLORIDE 50 ML IVPB (07:01)
[2017-09-28 07:31] LABS: PHOSPHORUS 2.6 mg/dl (2.5-4.9)
[2017-09-28 07:31] LABS: MAGNESIUM 1.9 mg/dl (1.7-2.5)
[2017-09-28] MEDS: METHADONE 10 MG TAB PO (09:03)
[2017-09-28] MEDS: MAGNESIUM OXIDE 400 MG TAB PO ×2 (09:03→21:25)
[2017-09-28] MEDS: BUSPIRONE 5 MG TAB PO ×2 (09:03→21:25)
[2017-09-28] MEDS: DULOXETINE 30 MG CAP DR PO ×2 (09:03→21:25)
[2017-09-28] MEDS: MEROPENEM 1 GM/50ML(PMX) 50 ML IVPB (09:03)
[2017-09-28] MEDS: METOPROLOL 25 MG TAB PO ×2 (09:04→21:25)
[2017-09-28] MEDS: ENOXAPARIN 40 MG/0.4 ML SYG SC (09:05)
[2017-09-28] MEDS: PROPOFOL 100 ML IV ×2 (09:08→22:00)
[2017-09-28] MEDS: SCOPOLAMINE 1.5 MG PATCH TRANSDERM (14:58)
[2017-09-28] MEDS: CEFEPIME 1GM/50 ML (PMX) 50 ML IVPB (21:25)
[2017-09-28] MEDS: LORAZEPAM 2 MG INJ IV (21:26)
[2017-09-29] MEDS: LEVALBUTEROL (HFA) 15 GM INHALER INH ×4 (02:33→20:50)
[2017-09-29 05:00] LABS: ADD MAN DIFF? NO
[2017-09-29 05:02] LABS: ABNORMAL IP MESSAGE 1; BASOPHIL # 0.1 10^3/ul (0.0-0.1); BASOPHILS % 0.3 % (0.0-2.0); EOSINOPHILS # 0.8 10^3/ul (0.0-0.5); EOSINOPHILS % 3.8 % (0.0-7.0); HEMATOCRIT 27.8 % (42.0-52.0); HEMOGLOBIN 8.5 g/dl (14.0-18.0); LYMPHOCYTES # 1.8 10^3/ul (0.8-2.9); LYMPHOCYTES % 8.6 % (15.0-51.0); MEAN CORPUSCULAR HEMOGLOBIN 27.6 pg (29.0-33.0); MEAN CORPUSCULAR HGB CONC 30.6 g/dl (32.0-37.0); MEAN CORPUSCULAR VOLUME 90.3 fl (82.0-101.0); MEAN PLATELET VOLUME 10.4 fl (7.4-10.4); MONOCYTE # 1.2 10^3/ul (0.3-0.9); MONOCYTES % 5.9 % (0.0-11.0); NEUTROPHIL # 16.5 10^3/ul (1.6-7.5); NEUTROPHILS % 80.5 % (39.0-77.0); NUCLEATED RED BLOOD CELLS% 0.1 /100WBC (0.0-0.0); PLATELET COUNT 292 10^3/UL (140-415); POSITIVE DIFF @See below; RED BLOOD COUNT 3.08 10^6/ul (4.70-6.10); RED CELL DISTRIBUTION WIDTH 22.7 % (11.5-14.5)
[2017-09-29 05:02] LABS: WHITE BLOOD COUNT 20.5 10^3/ul (4.8-10.8)
[2017-09-29 05:26] LABS: ANION GAP 15 (8-16); BLOOD UREA NITROGEN 35 mg/dl (7-20); CALCIUM 8.3 mg/dl (8.4-10.2); CARBON DIOXIDE 28 mmol/L (21-31); CHLORIDE 112 mmol/L (97-110); CREATININE 0.75 mg/dl (0.61-1.24); GLUCOSE 103 mg/dl (70-220); SODIUM 151 mmol/L (135-144)
[2017-09-29] MEDS: PANTOPRAZOLE 40 MG INJ IV (07:00)
[2017-09-29] MEDS: CEFEPIME 1GM/50 ML (PMX) 50 ML IVPB ×2 (09:47→20:06)
[2017-09-29] MEDS: BUSPIRONE 5 MG TAB PO ×2 (09:48→20:06)
[2017-09-29] MEDS: METHADONE 10 MG TAB PO (09:48)
[2017-09-29] MEDS: MAGNESIUM OXIDE 400 MG TAB PO ×2 (09:48→20:05)
[2017-09-29] MEDS: DULOXETINE 30 MG CAP DR PO ×2 (09:48→20:06)
[2017-09-29] MEDS: METOPROLOL 25 MG TAB PO ×2 (09:49→20:06)
[2017-09-29] MEDS: ENOXAPARIN 40 MG/0.4 ML SYG SC (09:57)
[2017-09-29] MEDS: PROPOFOL 100 ML IV ×2 (10:00→22:00)
[2017-09-29] MEDS: ALBUMIN HUMAN 25% 100 ML IV (11:02)
[2017-09-30] MEDS: LEVALBUTEROL (HFA) 15 GM INHALER INH ×4 (02:46→20:51)
[2017-09-30] MEDS: PANTOPRAZOLE 40 MG INJ IV (05:30)
[2017-09-30 06:02] LABS: WHITE BLOOD COUNT 20.7 10^3/ul (4.8-10.8)
[2017-09-30 06:02] LABS: ABNORMAL IP MESSAGE 1; ADD MAN DIFF? NO; BASOPHIL # 0.1 10^3/ul (0.0-0.1); BASOPHILS % 0.2 % (0.0-2.0); EOSINOPHILS # 0.9 10^3/ul (0.0-0.5); EOSINOPHILS % 4.4 % (0.0-7.0); HEMATOCRIT 26.1 % (42.0-52.0); HEMOGLOBIN 8.1 g/dl (14.0-18.0); LYMPHOCYTES # 1.9 10^3/ul (0.8-2.9); LYMPHOCYTES % 9.3 % (15.0-51.0); MEAN CORPUSCULAR HEMOGLOBIN 28.1 pg (29.0-33.0); MEAN CORPUSCULAR VOLUME 90.6 fl (82.0-101.0); MEAN PLATELET VOLUME 10.8 fl (7.4-10.4); MONOCYTE # 1.2 10^3/ul (0.3-0.9); MONOCYTES % 5.8 % (0.0-11.0); NEUTROPHIL # 16.4 10^3/ul (1.6-7.5); NEUTROPHILS % 79.5 % (39.0-77.0); PLATELET COUNT 286 10^3/UL (140-415); POSITIVE DIFF @See below; RED BLOOD COUNT 2.88 10^6/ul (4.70-6.10); RED CELL DISTRIBUTION WIDTH 22.6 % (11.5-14.5)
[2017-09-30 06:32] LABS: ANION GAP 15 (8-16); BLOOD UREA NITROGEN 31 mg/dl (7-20); CALCIUM 8.3 mg/dl (8.4-10.2); CARBON DIOXIDE 28 mmol/L (21-31); CHLORIDE 111 mmol/L (97-110); CREATININE 0.73 mg/dl (0.61-1.24); GLUCOSE 85 mg/dl (70-220); POTASSIUM 4.2 mmol/L (3.5-5.1); SODIUM 150 mmol/L (135-144)
[2017-09-30] MEDS: DULOXETINE 30 MG CAP DR PO ×2 (08:40→20:25)
[2017-09-30] MEDS: CEFEPIME 1GM/50 ML (PMX) 50 ML IVPB ×2 (08:40→20:25)
[2017-09-30] MEDS: METHADONE 10 MG TAB PO (08:40)
[2017-09-30] MEDS: METOPROLOL 25 MG TAB PO ×2 (08:41→20:26)
[2017-09-30] MEDS: BUSPIRONE 5 MG TAB PO ×2 (08:41→20:26)
[2017-09-30] MEDS: MAGNESIUM OXIDE 400 MG TAB PO ×2 (08:41→20:26)
[2017-09-30] MEDS: ENOXAPARIN 40 MG/0.4 ML SYG SC (08:44)
[2017-09-30] MEDS: ALBUMIN HUMAN 25% 100 ML IV (08:53)
[2017-09-30] MEDS: PROPOFOL 100 ML IV ×2 (10:00→22:00)
[2017-10-01] MEDS: LEVALBUTEROL (HFA) 15 GM INHALER INH ×4 (02:40→20:00)
[2017-10-01 05:34] LABS: ABNORMAL IP MESSAGE 1; ADD MAN DIFF? NO; BASOPHIL # 0.1 10^3/ul (0.0-0.1); BASOPHILS % 0.5 % (0.0-2.0); EOSINOPHILS # 0.9 10^3/ul (0.0-0.5); EOSINOPHILS % 4.8 % (0.0-7.0); HEMATOCRIT 25.2 % (42.0-52.0); HEMOGLOBIN 7.7 g/dl (14.0-18.0); LYMPHOCYTES # 1.9 10^3/ul (0.8-2.9); LYMPHOCYTES % 9.7 % (15.0-51.0); MEAN CORPUSCULAR HEMOGLOBIN 27.8 pg (29.0-33.0); MEAN CORPUSCULAR HGB CONC 30.6 g/dl (32.0-37.0); MEAN PLATELET VOLUME 10.5 fl (7.4-10.4); MONOCYTE # 1.2 10^3/ul (0.3-0.9); MONOCYTES % 5.9 % (0.0-11.0); NEUTROPHIL # 15.4 10^3/ul (1.6-7.5); NEUTROPHILS % 78.4 % (39.0-77.0); PLATELET COUNT 248 10^3/UL (140-415); POSITIVE DIFF @See below; RED BLOOD COUNT 2.77 10^6/ul (4.70-6.10); RED CELL DISTRIBUTION WIDTH 22.2 % (11.5-14.5)
[2017-10-01 05:34] LABS: WHITE BLOOD COUNT 19.6 10^3/ul (4.8-10.8)
[2017-10-01 06:13] LABS: ANION GAP 10 (8-16); BLOOD UREA NITROGEN 26 mg/dl (7-20); CALCIUM 8.1 mg/dl (8.4-10.2); CARBON DIOXIDE 30 mmol/L (21-31); CHLORIDE 106 mmol/L (97-110); CREATININE 0.72 mg/dl (0.61-1.24); GLUCOSE 88 mg/dl (70-220); SODIUM 142 mmol/L (135-144)
[2017-10-01] MEDS: PANTOPRAZOLE 40 MG INJ IV (06:27)
[2017-10-01] MEDS: CEFEPIME 1GM/50 ML (PMX) 50 ML IVPB ×2 (08:09→21:44)
[2017-10-01] MEDS: BUSPIRONE 5 MG TAB PO ×2 (08:11→21:44)
[2017-10-01] MEDS: DULOXETINE 30 MG CAP DR PO ×2 (08:11→21:44)
[2017-10-01] MEDS: METHADONE 10 MG TAB PO (08:11)
[2017-10-01] MEDS: MAGNESIUM OXIDE 400 MG TAB PO ×2 (08:11→21:44)
[2017-10-01] MEDS: METOPROLOL 25 MG TAB PO ×2 (08:14→21:44)
[2017-10-01] MEDS: ENOXAPARIN 40 MG/0.4 ML SYG SC (08:15)
[2017-10-01 09:17] LABS: ANISOCYTOSIS 1+ (0-0); BAND NEUTROPHILS #M 0.5 10^3/ul (0.0-0.6); BAND NEUTROPHILS % (M) 3 % (0-4); BASOPHIL #M 0.1 10^3/ul (0.0-0.0); BASOPHILS % (M) 1 % (0-2); EOSINOPHILS % (M) 6 % (0-7); GIANT THROMBO% (M) 1 % (0-0); HYPOCHROMASIA 2+ (0-0); LYMPHOCYTES #M 1.3 10^3/ul (0.8-2.9); LYMPHOCYTES % (M) 7 % (15-51); MONOCYTE #M 1.5 10^3/ul (0.3-0.9); MONOCYTES % (M) 8 % (0-11); PLATELET ESTIMATE NORMAL; POIKILOCYTOSIS 1+ (0-0); POLYCHROMASIA 1+ (0-0); SEG NEUT #M 14.8 10^3/ul (1.6-7.5); SEGMENTED NEUTROPHILS (M) % 75 % (39-77); SMUDGE%M 8 % (0-0); TARGET CELLS 1+ (0-0)
[2017-10-01] MEDS: PROPOFOL 100 ML IV (10:00)
[2017-10-01] MEDS: BISACODYL 10 MG SUPP PR ×2 (13:00→21:00)
[2017-10-02] MEDS: LEVALBUTEROL (HFA) 15 GM INHALER INH ×4 (02:01→20:37)
[2017-10-02] MEDS: PANTOPRAZOLE 40 MG INJ IV (07:39)
[2017-10-02 08:26] LABS: ADD MAN DIFF? NO
[2017-10-02 08:29] LABS: BASOPHIL # 0.1 10^3/ul (0.0-0.1); BASOPHILS % 0.3 % (0.0-2.0); EOSINOPHILS # 0.8 10^3/ul (0.0-0.5); EOSINOPHILS % 4.1 % (0.0-7.0); HEMATOCRIT 25.6 % (42.0-52.0); HEMOGLOBIN 7.9 g/dl (14.0-18.0); LYMPHOCYTES % 9.8 % (15.0-51.0); MEAN CORPUSCULAR HEMOGLOBIN 27.6 pg (29.0-33.0); MEAN CORPUSCULAR HGB CONC 30.9 g/dl (32.0-37.0); MEAN CORPUSCULAR VOLUME 89.5 fl (82.0-101.0); MEAN PLATELET VOLUME 10.6 fl (7.4-10.4); MONOCYTE # 1.3 10^3/ul (0.3-0.9); MONOCYTES % 6.5 % (0.0-11.0); NEUTROPHIL # 15.9 10^3/ul (1.6-7.5); NEUTROPHILS % 78.5 % (39.0-77.0); PLATELET COUNT 233 10^3/UL (140-415); RED BLOOD COUNT 2.86 10^6/ul (4.70-6.10); RED CELL DISTRIBUTION WIDTH 21.6 % (11.5-14.5)
[2017-10-02 08:29] LABS: WHITE BLOOD COUNT 20.3 10^3/ul (4.8-10.8)
[2017-10-02 08:59] LABS: ANION GAP 14 (8-16); BLOOD UREA NITROGEN 23 mg/dl (7-20); CALCIUM 8.1 mg/dl (8.4-10.2); CARBON DIOXIDE 29 mmol/L (21-31); CHLORIDE 101 mmol/L (97-110); CREATININE 0.77 mg/dl (0.61-1.24); GLUCOSE 107 mg/dl (70-220); POTASSIUM 4.1 mmol/L (3.5-5.1); SODIUM 140 mmol/L (135-144)
[2017-10-02] MEDS: METHADONE 10 MG TAB PO (09:07)
[2017-10-02] MEDS: CEFEPIME 1GM/50 ML (PMX) 50 ML IVPB ×2 (09:07→20:53)
[2017-10-02] MEDS: BISACODYL 10 MG SUPP PR (09:07)
[2017-10-02] MEDS: DULOXETINE 30 MG CAP DR PO ×2 (09:07→20:54)
[2017-10-02] MEDS: METOPROLOL 25 MG TAB PO ×2 (09:08→20:54)
[2017-10-02] MEDS: MAGNESIUM OXIDE 400 MG TAB PO ×2 (09:08→20:53)
[2017-10-02] MEDS: ENOXAPARIN 40 MG/0.4 ML SYG SC (09:10)
[2017-10-02] MEDS: BUSPIRONE 5 MG TAB PO ×2 (10:42→20:54)
[2017-10-02] MEDS: FUROSEMIDE 40 MG INJ IV (10:42)
[2017-10-02] MEDS: ALBUMIN HUMAN 25% 100 ML IV (10:43)
[2017-10-03] MEDS: LEVALBUTEROL (HFA) 15 GM INHALER INH ×4 (02:23→20:01)
[2017-10-03] MEDS: PANTOPRAZOLE 40 MG INJ IV (06:36)
[2017-10-03 07:38] LABS: ADD MAN DIFF? NO
[2017-10-03 07:53] LABS: BASOPHIL # 0.1 10^3/ul (0.0-0.1); BASOPHILS % 0.4 % (0.0-2.0); EOSINOPHILS # 0.7 10^3/ul (0.0-0.5); EOSINOPHILS % 4.1 % (0.0-7.0); HEMATOCRIT 24.8 % (42.0-52.0); HEMOGLOBIN 7.9 g/dl (14.0-18.0); LYMPHOCYTES # 1.8 10^3/ul (0.8-2.9); LYMPHOCYTES % 9.7 % (15.0-51.0); MEAN CORPUSCULAR HEMOGLOBIN 28.3 pg (29.0-33.0); MEAN CORPUSCULAR HGB CONC 31.9 g/dl (32.0-37.0); MEAN CORPUSCULAR VOLUME 88.9 fl (82.0-101.0); MEAN PLATELET VOLUME 10.5 fl (7.4-10.4); MONOCYTE # 1.2 10^3/ul (0.3-0.9); MONOCYTES % 6.5 % (0.0-11.0); NEUTROPHIL # 14.2 10^3/ul (1.6-7.5); NEUTROPHILS % 78.8 % (39.0-77.0); PLATELET COUNT 219 10^3/UL (140-415); RED BLOOD COUNT 2.79 10^6/ul (4.70-6.10); RED CELL DISTRIBUTION WIDTH 20.7 % (11.5-14.5)
[2017-10-03] MEDS: METHADONE 10 MG TAB PO (07:58)
[2017-10-03] MEDS: ACETAMINOPHEN 650MG/20.3ML CUP PO (07:58)
[2017-10-03 08:27] LABS: ANION GAP 12 (8-16); BLOOD UREA NITROGEN 22 mg/dl (7-20); CALCIUM 8.1 mg/dl (8.4-10.2); CARBON DIOXIDE 31 mmol/L (21-31); CHLORIDE 98 mmol/L (97-110); CREATININE 0.75 mg/dl (0.61-1.24); GLUCOSE 87 mg/dl (70-220); SODIUM 137 mmol/L (135-144)
[2017-10-03] MEDS: BUSPIRONE 5 MG TAB PO ×2 (09:14→20:25)
[2017-10-03] MEDS: MAGNESIUM OXIDE 400 MG TAB PO ×2 (09:14→20:25)
[2017-10-03] MEDS: DULOXETINE 30 MG CAP DR PO ×2 (09:14→20:25)
[2017-10-03] MEDS: METOPROLOL 25 MG TAB PO ×2 (09:15→20:26)
[2017-10-03] MEDS: FUROSEMIDE 40 MG INJ IV ×2 (09:16→17:39)
[2017-10-03] MEDS: CEFEPIME 1GM/50 ML (PMX) 50 ML IVPB (09:16)
[2017-10-03] MEDS: ENOXAPARIN 40 MG/0.4 ML SYG SC (09:26)
[2017-10-03] MEDS: CEFTRIAXONE 2 GM/50 ML (PMX) 50 ML IVPB (16:24)
[2017-10-03] MEDS: LORAZEPAM 2 MG INJ IV (16:24)
[2017-10-04] MEDS: LORAZEPAM 2 MG INJ IV ×3 (02:39→21:51)
[2017-10-04] MEDS: LEVALBUTEROL (HFA) 15 GM INHALER INH ×4 (03:19→19:51)
[2017-10-04] MEDS: FUROSEMIDE 40 MG INJ IV ×2 (05:53→17:34)
[2017-10-04] MEDS: PANTOPRAZOLE 40 MG INJ IV (05:53)
[2017-10-04 06:44] LABS: ADD MAN DIFF? NO
[2017-10-04 06:47] LABS: BASOPHIL # 0.1 10^3/ul (0.0-0.1); BASOPHILS % 0.4 % (0.0-2.0); EOSINOPHILS # 0.7 10^3/ul (0.0-0.5); EOSINOPHILS % 4.3 % (0.0-7.0); HEMOGLOBIN 7.6 g/dl (14.0-18.0); LYMPHOCYTES # 1.6 10^3/ul (0.8-2.9); MEAN CORPUSCULAR HEMOGLOBIN 27.6 pg (29.0-33.0); MEAN CORPUSCULAR HGB CONC 31.7 g/dl (32.0-37.0); MEAN CORPUSCULAR VOLUME 87.3 fl (82.0-101.0); MONOCYTES % 6.5 % (0.0-11.0); NEUTROPHIL # 12.2 10^3/ul (1.6-7.5); NEUTROPHILS % 78.3 % (39.0-77.0); PLATELET COUNT 206 10^3/UL (140-415); RED BLOOD COUNT 2.75 10^6/ul (4.70-6.10); RED CELL DISTRIBUTION WIDTH 20.6 % (11.5-14.5)
[2017-10-04 06:47] LABS: WHITE BLOOD COUNT 15.6 10^3/ul (4.8-10.8)
[2017-10-04 07:20] LABS: ALANINE AMINOTRANSFERASE 27 IU/L (13-69); ALBUMIN/GLOBULIN RATIO 0.69; ALKALINE PHOSPHATASE 102 IU/L (42-121); ANION GAP 12 (8-16); ASPARTATE AMINO TRANSFERASE 26 IU/L (15-46); BILIRUBIN,INDIRECT 0.5 mg/dl (0-1.1); BILIRUBIN,TOTAL 0.5 mg/dl (0.2-1.3); BLOOD UREA NITROGEN 22 mg/dl (7-20); CALCIUM 8.1 mg/dl (8.4-10.2); CARBON DIOXIDE 33 mmol/L (21-31); CHLORIDE 94 mmol/L (97-110); CREATININE 0.76 mg/dl (0.61-1.24); GLUCOSE 92 mg/dl (70-220); POTASSIUM 3.7 mmol/L (3.5-5.1); SODIUM 135 mmol/L (135-144); TOTAL PROTEIN 7.3 g/dl (6.1-8.1)
[2017-10-04] MEDS: DULOXETINE 30 MG CAP DR PO ×2 (08:38→21:41)
[2017-10-04] MEDS: MAGNESIUM OXIDE 400 MG TAB PO ×2 (08:38→21:41)
[2017-10-04] MEDS: METHADONE 10 MG TAB PO (08:38)
[2017-10-04] MEDS: BUSPIRONE 5 MG TAB PO ×2 (08:38→21:41)
[2017-10-04] MEDS: METOPROLOL 25 MG TAB PO ×2 (08:39→21:41)
[2017-10-04] MEDS: ENOXAPARIN 40 MG/0.4 ML SYG SC (08:42)
[2017-10-04] MEDS: POTASSIUM CHLORIDE (SR) 20 MEQ TAB PO (10:26)
[2017-10-04] MEDS: POTASSIUM CHLORIDE 20 MEQ POWDER FOR ORAL SOLN GTB (12:37)
[2017-10-04] MEDS: CEFTRIAXONE 2 GM/50 ML (PMX) 50 ML IVPB (16:39)
[2017-10-05] MEDS: LORAZEPAM 2 MG INJ IV ×2 (01:54→21:20)
[2017-10-05] MEDS: LEVALBUTEROL (HFA) 15 GM INHALER INH ×4 (02:15→19:28)
[2017-10-05] MEDS: PANTOPRAZOLE 40 MG INJ IV (05:45)
[2017-10-05] MEDS: FUROSEMIDE 40 MG INJ IV (05:45)
[2017-10-05] MEDS: METOPROLOL 25 MG TAB PO ×2 (09:15→21:07)
[2017-10-05] MEDS: DULOXETINE 30 MG CAP DR PO ×2 (09:15→21:06)
[2017-10-05] MEDS: BUSPIRONE 5 MG TAB PO ×2 (09:15→21:07)
[2017-10-05] MEDS: MAGNESIUM OXIDE 400 MG TAB PO ×2 (09:15→21:07)
[2017-10-05 09:16] LABS: ADD MAN DIFF? NO
[2017-10-05] MEDS: ENOXAPARIN 40 MG/0.4 ML SYG SC (09:20)
[2017-10-05 09:22] LABS: BASOPHIL # 0.1 10^3/ul (0.0-0.1); BASOPHILS % 0.3 % (0.0-2.0); EOSINOPHILS # 0.6 10^3/ul (0.0-0.5); EOSINOPHILS % 3.7 % (0.0-7.0); LYMPHOCYTES # 1.5 10^3/ul (0.8-2.9); LYMPHOCYTES % 10.3 % (15.0-51.0); MEAN CORPUSCULAR HEMOGLOBIN 28.2 pg (29.0-33.0); MEAN PLATELET VOLUME 10.8 fl (7.4-10.4); MONOCYTES % 6.8 % (0.0-11.0); NEUTROPHIL # 11.7 10^3/ul (1.6-7.5); NEUTROPHILS % 78.4 % (39.0-77.0); PLATELET COUNT 211 10^3/UL (140-415); RED BLOOD COUNT 2.84 10^6/ul (4.70-6.10)
[2017-10-05] MEDS: METHADONE 10 MG TAB PO (09:25)
[2017-10-05 09:45] LABS: ALANINE AMINOTRANSFERASE 31 IU/L (13-69); ALBUMIN 3.2 g/dl (3.3-4.9); ALBUMIN/GLOBULIN RATIO 0.72; ALKALINE PHOSPHATASE 114 IU/L (42-121); ANION GAP 14 (8-16); BILIRUBIN,INDIRECT 0.6 mg/dl (0-1.1); BILIRUBIN,TOTAL 0.6 mg/dl (0.2-1.3); BLOOD UREA NITROGEN 20 mg/dl (7-20); CALCIUM 8.4 mg/dl (8.4-10.2); CARBON DIOXIDE 34 mmol/L (21-31); CHLORIDE 91 mmol/L (97-110); CREATININE 0.86 mg/dl (0.61-1.24); GLUCOSE 92 mg/dl (70-220); POTASSIUM 3.9 mmol/L (3.5-5.1); SODIUM 135 mmol/L (135-144); TOTAL PROTEIN 7.6 g/dl (6.1-8.1)
[2017-10-05 09:52] LABS: ASPARTATE AMINO TRANSFERASE 25 IU/L (15-46)
[2017-10-05] MEDS: CEFTRIAXONE 2 GM/50 ML (PMX) 50 ML IVPB (16:02)
[2017-10-05] MEDS: ACETAMINOPHEN 650MG/20.3ML CUP PO (21:06)
[2017-10-06] MEDS: LEVALBUTEROL (HFA) 15 GM INHALER INH ×4 (01:56→19:46)
[2017-10-06] MEDS: PANTOPRAZOLE 40 MG INJ IV (05:48)
[2017-10-06] MEDS: DULOXETINE 30 MG CAP DR PO ×2 (08:53→20:03)
[2017-10-06] MEDS: MAGNESIUM OXIDE 400 MG TAB PO ×2 (08:53→20:03)
[2017-10-06] MEDS: METHADONE 10 MG TAB PO (08:53)
[2017-10-06] MEDS: FUROSEMIDE 40 MG INJ IV (08:53)
[2017-10-06] MEDS: BUSPIRONE 5 MG TAB PO ×2 (08:54→20:03)
[2017-10-06] MEDS: ENOXAPARIN 40 MG/0.4 ML SYG SC (09:00)
[2017-10-06] MEDS: METOPROLOL 25 MG TAB PO ×2 (09:02→20:03)
[2017-10-06 12:33] LABS: ANION GAP 11 (8-16); BLOOD UREA NITROGEN 20 mg/dl (7-20); CALCIUM 8.2 mg/dl (8.4-10.2); CARBON DIOXIDE 37 mmol/L (21-31); CHLORIDE 92 mmol/L (97-110); CREATININE 0.86 mg/dl (0.61-1.24); GLUCOSE 111 mg/dl (70-220); MAGNESIUM 1.7 mg/dl (1.7-2.5); SODIUM 136 mmol/L (135-144)
[2017-10-06] MEDS: POTASSIUM CHLORIDE (SR) 20 MEQ TAB PO (14:38)
[2017-10-06] MEDS: LORAZEPAM 2 MG INJ IV ×2 (15:53→20:03)
[2017-10-06] MEDS: CEFTRIAXONE 2 GM/50 ML (PMX) 50 ML IVPB (15:59)
[2017-10-07] MEDS: LEVALBUTEROL (HFA) 15 GM INHALER INH ×4 (01:30→21:13)
[2017-10-07] MEDS: PANTOPRAZOLE 40 MG INJ IV (05:00)
[2017-10-07 06:29] LABS: ANION GAP 13 (8-16); BLOOD UREA NITROGEN 16 mg/dl (7-20); CALCIUM 8.2 mg/dl (8.4-10.2); CARBON DIOXIDE 33 mmol/L (21-31); CHLORIDE 93 mmol/L (97-110); CREATININE 0.79 mg/dl (0.61-1.24); GLUCOSE 106 mg/dl (70-220); POTASSIUM 4.1 mmol/L (3.5-5.1); SODIUM 135 mmol/L (135-144)
[2017-10-07] MEDS: DULOXETINE 30 MG CAP DR PO ×2 (08:47→19:48)
[2017-10-07] MEDS: FUROSEMIDE 40 MG INJ IV (08:48)
[2017-10-07] MEDS: MAGNESIUM OXIDE 400 MG TAB PO ×2 (08:48→19:47)
[2017-10-07] MEDS: METOPROLOL 25 MG TAB PO ×2 (08:48→19:50)
[2017-10-07] MEDS: BUSPIRONE 5 MG TAB PO ×2 (08:48→19:48)
[2017-10-07] MEDS: METHADONE 10 MG TAB PO (08:49)
[2017-10-07] MEDS: ENOXAPARIN 40 MG/0.4 ML SYG SC (09:09)
[2017-10-07] MEDS: CEFTRIAXONE 2 GM/50 ML (PMX) 50 ML IVPB (15:38)
[2017-10-07] MEDS: POLYETHYLENE GLYCOL 17 GM PACKET PO (19:48)
[2017-10-08] MEDS: LEVALBUTEROL (HFA) 15 GM INHALER INH ×4 (01:06→20:00)
[2017-10-08] MEDS: PANTOPRAZOLE 40 MG INJ IV (05:33)
[2017-10-08 06:42] LABS: ANION GAP 12 (8-16); BLOOD UREA NITROGEN 13 mg/dl (7-20); CALCIUM 8.3 mg/dl (8.4-10.2); CARBON DIOXIDE 34 mmol/L (21-31); CHLORIDE 94 mmol/L (97-110); CREATININE 0.83 mg/dl (0.61-1.24); GLUCOSE 106 mg/dl (70-220); POTASSIUM 3.9 mmol/L (3.5-5.1); SODIUM 136 mmol/L (135-144)
[2017-10-08] MEDS: DULOXETINE 30 MG CAP DR PO ×2 (09:51→21:42)
[2017-10-08] MEDS: POLYETHYLENE GLYCOL 17 GM PACKET PO ×2 (09:51→21:43)
[2017-10-08] MEDS: METOPROLOL 25 MG TAB PO ×2 (09:52→21:42)
[2017-10-08] MEDS: METHADONE 10 MG TAB PO (09:52)
[2017-10-08] MEDS: BUSPIRONE 5 MG TAB PO ×2 (09:53→21:42)
[2017-10-08] MEDS: MAGNESIUM OXIDE 400 MG TAB PO ×2 (09:53→21:42)
[2017-10-08] MEDS: FUROSEMIDE 40 MG INJ IV (09:54)
[2017-10-08] MEDS: ENOXAPARIN 40 MG/0.4 ML SYG SC (09:57)
[2017-10-08] MEDS: POTASSIUM CHLORIDE (SR) 20 MEQ TAB PO (15:39)
[2017-10-08] MEDS: CEFTRIAXONE 2 GM/50 ML (PMX) 50 ML IVPB (15:56)
[2017-10-08] MEDS: POTASSIUM CHLORIDE 20 MEQ POWDER FOR ORAL SOLN GTB (15:56)
[2017-10-08] MEDS ORDERED: SENNA TAB PO (16:30)
[2017-10-09] MEDS: LEVALBUTEROL (HFA) 15 GM INHALER INH ×4 (01:12→19:14)
[2017-10-09] MEDS: PANTOPRAZOLE 40 MG INJ IV (05:11)
[2017-10-09] MEDS: DULOXETINE 30 MG CAP DR PO ×2 (10:02→21:19)
[2017-10-09] MEDS: BUSPIRONE 5 MG TAB PO ×2 (10:02→21:19)
[2017-10-09] MEDS: FUROSEMIDE 40 MG INJ IV (10:02)
[2017-10-09] MEDS: METHADONE 10 MG TAB PO (10:02)
[2017-10-09] MEDS: MAGNESIUM OXIDE 400 MG TAB PO ×2 (10:03→21:18)
[2017-10-09] MEDS: METOPROLOL 25 MG TAB PO ×2 (10:03→21:19)
[2017-10-09] MEDS: POLYETHYLENE GLYCOL 17 GM PACKET PO ×2 (10:05→21:19)
[2017-10-09] MEDS: ENOXAPARIN 40 MG/0.4 ML SYG SC (10:16)
[2017-10-09 14:09] LABS: ANION GAP 12 (8-16); BLOOD UREA NITROGEN 10 mg/dl (7-20); CALCIUM 8.4 mg/dl (8.4-10.2); CARBON DIOXIDE 35 mmol/L (21-31); CHLORIDE 93 mmol/L (97-110); CREATININE 0.85 mg/dl (0.61-1.24); GLUCOSE 111 mg/dl (70-220); POTASSIUM 4.3 mmol/L (3.5-5.1); SODIUM 136 mmol/L (135-144)
[2017-10-09] MEDS: ACETAMINOPHEN 650MG/20.3ML CUP GTB (16:49)
[2017-10-09] MEDS: CEFTRIAXONE 2 GM/50 ML (PMX) 50 ML IVPB (16:50)
[2017-10-10] MEDS: LEVALBUTEROL (HFA) 15 GM INHALER INH ×4 (01:29→19:38)
[2017-10-10] MEDS: PANTOPRAZOLE 40 MG INJ IV (05:33)
[2017-10-10] MEDS: POLYETHYLENE GLYCOL 17 GM PACKET PO ×3 (09:00→21:13)
[2017-10-10] MEDS: FUROSEMIDE 40 MG INJ IV (09:12)
[2017-10-10] MEDS: MAGNESIUM OXIDE 400 MG TAB PO ×2 (09:13→21:12)
[2017-10-10] MEDS: DULOXETINE 30 MG CAP DR PO ×2 (09:13→21:12)
[2017-10-10] MEDS: METHADONE 10 MG TAB PO (09:13)
[2017-10-10] MEDS: BUSPIRONE 5 MG TAB PO ×2 (09:13→21:12)
[2017-10-10] MEDS: METOPROLOL 25 MG TAB PO ×2 (09:16→21:12)
[2017-10-10] MEDS: ENOXAPARIN 40 MG/0.4 ML SYG SC (10:08)
[2017-10-10 13:41] LABS: ADD MAN DIFF? NO
[2017-10-10 13:44] LABS: ABNORMAL IP MESSAGE 1; BASOPHIL # 0.1 10^3/ul (0.0-0.1); BASOPHILS % 0.5 % (0.0-2.0); EOSINOPHILS # 0.9 10^3/ul (0.0-0.5); EOSINOPHILS % 6.2 % (0.0-7.0); HEMATOCRIT 22.5 % (42.0-52.0); LYMPHOCYTES # 1.5 10^3/ul (0.8-2.9); MEAN CORPUSCULAR HGB CONC 30.7 g/dl (32.0-37.0); MEAN CORPUSCULAR VOLUME 87.9 fl (82.0-101.0); MEAN PLATELET VOLUME 10.3 fl (7.4-10.4); MONOCYTE # 1.2 10^3/ul (0.3-0.9); MONOCYTES % 8.4 % (0.0-11.0); NEUTROPHIL # 10.2 10^3/ul (1.6-7.5); NEUTROPHILS % 73.5 % (39.0-77.0); PLATELET COUNT 218 10^3/UL (140-415); POSITIVE DIFF @See below; RED BLOOD COUNT 2.56 10^6/ul (4.70-6.10)
[2017-10-10 13:44] LABS: WHITE BLOOD COUNT 13.9 10^3/ul (4.8-10.8)
[2017-10-10 13:55] LABS: HEMOGLOBIN 6.9 g/dl (14.0-18.0); PATH REVIEW? YES
[2017-10-10 14:38] LABS: ANISOCYTOSIS 1+ (0-0); BAND NEUTROPHILS #M 0.5 10^3/ul (0.0-0.6); BAND NEUTROPHILS % (M) 4 % (0-4); EOSINOPHILS % (M) 6 % (0-7); GIANT THROMBO% (M) 2 % (0-0); HYPOCHROMASIA 2+ (0-0); LYMPHOCYTES #M 1.2 10^3/ul (0.8-2.9); LYMPHOCYTES % (M) 9 % (15-51); MICROCYTOSIS 1+ (0-0); MONOCYTE #M 0.9 10^3/ul (0.3-0.9); MONOCYTES % (M) 7 % (0-11); PLATELET ESTIMATE NORMAL; POIKILOCYTOSIS 1+ (0-0); POLYCHROMASIA 3+ (0-0); SEG NEUT #M 10.4 10^3/ul (1.6-7.5); SEGMENTED NEUTROPHILS (M) % 74 % (39-77); SMUDGE%M 3 % (0-0)
[2017-10-10] MEDS: CEFTRIAXONE 2 GM/50 ML (PMX) 50 ML IVPB (16:36)
[2017-10-11] MEDS: LEVALBUTEROL (HFA) 15 GM INHALER INH ×4 (01:21→19:35)
[2017-10-11 04:02] LABS: IMMEDIATE SPIN CROSSMATCH 1 2
[2017-10-11] MEDS: PANTOPRAZOLE 40 MG INJ IV (05:42)
[2017-10-11 08:41] LABS: ADD MAN DIFF? NO
[2017-10-11] MEDS: POLYETHYLENE GLYCOL 17 GM PACKET PO ×2 (09:00→21:18)
[2017-10-11] MEDS: FUROSEMIDE 40 MG INJ IV (09:00)
[2017-10-11] MEDS: ENOXAPARIN 40 MG/0.4 ML SYG SC (09:00)
[2017-10-11 09:35] LABS: PATH REVIEW CH
[2017-10-11 09:40] LABS: BASOPHIL # 0.1 10^3/ul (0.0-0.1); BASOPHILS % 0.6 % (0.0-2.0); EOSINOPHILS # 0.9 10^3/ul (0.0-0.5); EOSINOPHILS % 6.1 % (0.0-7.0); HEMATOCRIT 26.8 % (42.0-52.0); HEMOGLOBIN 8.5 g/dl (14.0-18.0); LYMPHOCYTES # 1.5 10^3/ul (0.8-2.9); LYMPHOCYTES % 10.8 % (15.0-51.0); MEAN CORPUSCULAR HEMOGLOBIN 27.7 pg (29.0-33.0); MEAN CORPUSCULAR HGB CONC 31.7 g/dl (32.0-37.0); MEAN CORPUSCULAR VOLUME 87.3 fl (82.0-101.0); MEAN PLATELET VOLUME 10.6 fl (7.4-10.4); MONOCYTE # 1.3 10^3/ul (0.3-0.9); MONOCYTES % 9.1 % (0.0-11.0); NEUTROPHIL # 10.2 10^3/ul (1.6-7.5); NEUTROPHILS % 72.9 % (39.0-77.0); PLATELET COUNT 244 10^3/UL (140-415); RED BLOOD COUNT 3.07 10^6/ul (4.70-6.10); RED CELL DISTRIBUTION WIDTH 18.4 % (11.5-14.5)
[2017-10-11] MEDS: DULOXETINE 30 MG CAP DR PO ×2 (10:01→21:17)
[2017-10-11] MEDS: MAGNESIUM OXIDE 400 MG TAB PO ×2 (10:01→21:17)
[2017-10-11] MEDS: BUSPIRONE 5 MG TAB PO ×2 (10:01→21:17)
[2017-10-11] MEDS: METOPROLOL 25 MG TAB PO ×2 (10:02→21:18)
[2017-10-11] MEDS: METHADONE 10 MG TAB PO (10:06)
[2017-10-11 10:37] LABS: PLATELET COUNT 249 10^3/UL (140-415)
[2017-10-11 11:01] LABS: INR 1.35; PARTIAL THROMBOPLASTIN TIME 36.8 Sec (25.0-35.0); PROTIME 16.9 Sec (11.9-14.9); PT RATIO 1.3; THROMBIN TIME 16.5 SEC (13.8-19.1)
[2017-10-11] MEDS: ALBUTEROL/IPRATROPIUM (NEB) 3 ML AMP HHN (11:34)
[2017-10-11] MEDS: LORAZEPAM 2 MG INJ IV (14:14)
[2017-10-11] MEDS: LIDOCAINE 1% (MDV) 10 ML INJ (15:25)
[2017-10-11] MEDS: CEFTRIAXONE 2 GM/50 ML (PMX) 50 ML IVPB (17:50)
[2017-10-12] MEDS: ACETAMINOPHEN 650MG/20.3ML CUP GTB (01:02)
[2017-10-12] MEDS: LEVALBUTEROL (HFA) 15 GM INHALER INH ×3 (01:38→14:12)
[2017-10-12] MEDS: PANTOPRAZOLE 40 MG INJ IV (05:16)
[2017-10-12] MEDS: DULOXETINE 30 MG CAP DR PO (09:14)
[2017-10-12] MEDS: MAGNESIUM OXIDE 400 MG TAB PO (09:14)
[2017-10-12] MEDS: POLYETHYLENE GLYCOL 17 GM PACKET PO (09:15)
[2017-10-12] MEDS: METHADONE 10 MG TAB PO (09:15)
[2017-10-12] MEDS: METOPROLOL 25 MG TAB PO (09:16)
[2017-10-12] MEDS: BUSPIRONE 5 MG TAB PO (09:16)
[2017-10-12] MEDS: FUROSEMIDE 40 MG INJ IV (09:16)
[2017-10-12] MEDS: LORAZEPAM 2 MG INJ IV ×2 (09:42→16:16)
[2017-10-12] MEDS: CEFTRIAXONE 2 GM/50 ML (PMX) 50 ML IVPB (16:17)
[2017-10-12] MEDS ORDERED: ENOXAPARIN 40 MG/0.4 ML SYG SC (21:00)
== END 2017-10-12 17:19 | disposition short-term general hospital (02) | DRG 4 ==
LOC: ICU 01:11 → TEL 10-02 → MS4 09-16 22:35
PROC: 0B113F4 Bypass Trachea to Cutaneous with Tracheostomy Device, Percutaneous Approach (ICD-10-PCS; principal; 2017-09-23 16:30)
PROC: 5A1955Z Respiratory Ventilation, Greater than 96 Consecutive Hours (ICD-10-PCS; 2017-09-23 16:45)
PROC: 0DH68UZ Insertion of Feeding Device into Stomach, Via Natural or Artificial Opening Endoscopic (ICD-10-PCS; 2017-09-23 16:45)
PROC: 02HV33Z Insertion of Infusion Device into Superior Vena Cava, Percutaneous Approach (ICD-10-PCS; 2017-09-23 16:45)
PROC: 30233N1 Transfusion of Nonautologous Red Blood Cells into Peripheral Vein, Percutaneous Approach (ICD-10-PCS; 2017-09-23 16:45)
PROC: 0B21XEZ Change Endotracheal Airway in Trachea, External Approach (ICD-10-PCS; 2017-09-23 16:45)
DX: A41.01 Sepsis due to Methicillin susceptible Staphylococcus aureus (principal); G93.49 Other encephalopathy; I26.90 Septic pulmonary embolism without acute cor pulmonale; I33.0 Acute and subacute infective endocarditis; R65.21 Severe sepsis with septic shock; J18.9 Pneumonia, unspecified organism; N17.0 Acute kidney failure with tubular necrosis; K72.00 Acute and subacute hepatic failure without coma; J69.0 Pneumonitis due to inhalation of food and vomit; J80 Acute respiratory distress syndrome; E87.2 Acidosis; E87.0 Hyperosmolality and hypernatremia; R13.10 Dysphagia, unspecified; R60.0 Localized edema; N39.0 Urinary tract infection, site not specified; F19.939 Other psychoactive substance use, unspecified with withdrawal, unspecified; F11.90 Opioid use, unspecified, uncomplicated; F32.9 Major depressive disorder, single episode, unspecified; D69.6 Thrombocytopenia, unspecified; I07.9 Rheumatic tricuspid valve disease, unspecified; I10 Essential (primary) hypertension; B19.20 Unspecified viral hepatitis C without hepatic coma; D63.8 Anemia in other chronic diseases classified elsewhere; E88.09 Other disorders of plasma-protein metabolism, not elsewhere classified; K59.00 Constipation, unspecified; Z86.59 Personal history of other mental and behavioral disorders
CPT/HCPCS: 31500; 36430; 36569; 36600; 71045; 71250; 74018; 76604; 76937; 76942; 80048; 80053; 80076; 80202; 80307; 81001; 82140; 82803; 82962; 83605; 83735; 83880; 84100; 85025; 85049; 85610; 85670; 85730; 86703; 86704; 86706; 86708; 86709; 86803; 86850; 86900; 86901; 86920; 87040; 87070; 87081; 87086; 87103; 87340; 92507; 92526; 92610; 93005; 93306; 94002; 94003; 94640; 94664; 94770; 97110; 97116; 97162; 97166; 97530; 97535

== ENCOUNTER 2018-02-06 02:53 | Emergency (ER) | payer OTHER | END 2018-02-06 04:25 | disposition home or self-care (01) | LOC: FTE 02:53 | DX: J20.9 Acute bronchitis, unspecified (principal); F17.210 Nicotine dependence, cigarettes, uncomplicated | CPT/HCPCS: 71045; 99284-25 ==